=== PATIENT | male | born 1975 | race Caucasian/White ===

== ENCOUNTER 2017-06-22 20:01 | Inpatient (IN) | payer OTHER ==
[~2017-06-22] VITALS: Ht 177.8 cm; Wt 111.0 kg
[2017-06-22] MEDS ORDERED: SODIUM CHLORIDE 0.9% 1000ML 1,000 ML IV STA (20:06)
[2017-06-22] MEDS ORDERED: HYDROmorphone INJ 1 MG/ML SYR IV STA ×2 (20:06→21:02)
--- NOTE | 2017-06-22 20:12 | EMERGENCY ROOM VISIT NOTE ---
History Report prepared by Scribe: Ana Mcpherson Under the Supervision of: Dr. Dixon Yung M.D. First contact with patient: 20:02 Stated Complaint: FALL/ RT ANKLE PAIN W/DEFORMITY - W/C History of Present Illness The patient is a 41 year old male who presents to the Emergency Room with complaints of an episode of a fall that occurred just prior to arrival. The patient notes right ankle pain after the fall and believes it is broken. The patient was at work when he fell and "slipped on oil". He works at [employer]. The patient has a pin in both of his hips due to problems with growth spurt as child. No blood thinners. No previous injuries to ankle. Unable to bear weight. No medications prior to arrival. Worse with movement, better with rest. Did not strike head nor does he have headache nor neck pain. Source of History: patient Onset: just prior to arrival Position: ankle (right) Timing: other (episode) Review of Systems See HPI for pertinent positives & negatives. A total of 10 systems reviewed and were otherwise negative. Past Medical & Surgical Surgical Problems: (1) hip repair Family History no pertinent family history stated Social History Marital Status: single Occupation Status: employed Current/Historical Medications Scheduled Hydrocortisone (Cortef), 20 MG PO DAILY Levothyroxine Sodium (Levothyroxine Sodium), 1 TAB PO DAILY Testosterone Cypionate (Testosterone Cypionate), 200 MG IM WK Allergies Coded Allergies: NO KNOWN DRUG ALLERGIES (Verified Allergy, Unknown, none, 06/22/17) Physical Exam Vital Signs Date Time Temp Pulse Resp B/P (MAP) Pulse Ox O2 Delivery O2 Flow Rate FiO2 06/22/17 21:53 52 18 102/64 92 Nasal Cannula 4.0 06/22/17 21:14 100 Nasal Cannula 2.0 06/22/17 21:13 58 18 119/79 88 Room Air 06/22/17 20:05 36.9 66 18 124/67 100 Room Air Physical Exam GENERAL: Patient is well appearing and in no acute distress. HEENT: No acute trauma, normocephalic atraumatic, mucous membranes moist, no nasal congestion, no scleral icterus. NECK: No stridor, no adenopathy, no meningismus, trachea is midline. LUNGS: No dyspnea. Clear to auscultation and equal bilaterally. No wheeze, no rhonchi. HEART: Regular rate and rhythm. No murmurs, rubs, gallops appreciated. ABDOMEN: Soft, nontender, bowel sounds positive, no masses appreciated, no peritonitis. BACK: No midline tenderness, no CVA tenderness EXTREMITIES: Normal motion all extremities, no cyanosis. Mildly externally rotated right foot with tenderness on palpation and swelling. Mild tenderness on palpation of right fibula NEUROLOGIC: Alert and oriented, no acute motor or sensory deficits, no focal weakness, cranial nerves grossly intact. SKIN: No rash, no jaundice, no diaphoresis. Medical Decision & Procedures ER Provider Diagnostic Interpretation: Radiology results and stated below per my review and radiologist interpretation: ANKLE 2 VIEWS FINDINGS: There is a markedly displaced fracture through the distal shaft of the right fibula. Fracture is displaced 1.3 cm. There is disruption of the tibiotalar joint. In addition, there are displaced fractures of the medial malleolus and posterior malleolus of the distal right tibia. Soft tissue swelling is present. Talar dome appears intact. Positioning on this exam was difficult. IMPRESSION: Findings consistent with a markedly displaced trimalleolar fracture/tibiotalar joint dislocation of the right ankle. Electronically signed by: Sarkis Jenkins M.D. RIGHT TIBIA/FIBULA 2 VIEWS ROUTINE FINDINGS: A displaced trimalleolar fracture/dislocation of the right ankle is better depicted on the right ankle radiographs. There is no proximal right tibial or fibular fracture. Alignment of the right knee is anatomic. There is a possible 7 mm subchondral lucent focus within the lateral tibial plateau. There is no right knee joint effusion. IMPRESSION: 1. Displaced trimalleolar fracture/dislocation of the right ankle which is better depicted on the right ankle radiographs. 2. No proximal right tibial or fibular fracture. 3. Apparent 7 mm subchondral lucency focus within the lateral tibial plateau. This is nonspecific and may be artifactual but is not acute. Electronically signed by: Sarkis Jenkins M.D. RIGHT ANKLE 2 VIEWS CLINICAL HISTORY: Post reduction. . FINDINGS: Fine detail is diminished due to overlying cast. Alignment of the trimalleolar fracture/dislocation of the right ankle has improved since prior exam. Distal fibular fracture is displaced 1.2 cm. Persistent but improved medial ankle mortise widening is noted. IMPRESSION: Interval improvement in alignment of the right ankle trimalleolar fracture/dislocation since prior exam. Distal right fibular and tibial fractures remain displaced with persistent medial ankle mortise widening although moderate improvement since prior exam. Electronically signed by: Sarkis Jenkins M.D. Laboratory Results 06/22/17 20:20 Red Blood Count 3.47, Mean Corpuscular Volume 86.5, Mean Corpuscular Hemoglobin 28.8, Mean Corpuscular Hemoglobin Concent 33.3, Mean Platelet Volume 11.1, Neutrophils (%) (Auto) 48.7, Lymphocytes (%) (Auto) 36.0, Monocytes (%) (Auto) 5.8, Eosinophils (%) (Auto) 6.9, Basophils (%) (Auto) 2.4, Neutrophils # (Auto) 3.10, Lymphocytes # (Auto) 2.29, Monocytes # (Auto) 0.37, Eosinophils # (Auto) 0.44, Basophils # (Auto) 0.15 06/22/17 20:20 Test 06/22/17 20:20 06/22/17 21:51 White Blood Count 6.36 K/uL (4.8-10.8) Red Blood Count 3.47 M/uL (4.7-6.1) Hemoglobin 10.0 g/dL (14.0-18.0) Hematocrit 30.0 % (42-52) Mean Corpuscular Volume 86.5 fL (80-100) Mean Corpuscular Hemoglobin 28.8 pg (25-34) Mean Corpuscular Hemoglobin Concent 33.3 g/dl (32-36) Platelet Count 176 K/uL (130-400) Mean Platelet Volume 11.1 fL (7.4-10.4) Neutrophils (%) (Auto) 48.7 % Lymphocytes (%) (Auto) 36.0 % Monocytes (%) (Auto) 5.8 % Eosinophils (%) (Auto) 6.9 % Basophils (%) (Auto) 2.4 % Neutrophils # (Auto) 3.10 K/uL (1.4-6.5) Lymphocytes # (Auto) 2.29 K/uL (1.2-3.4) Monocytes # (Auto) 0.37 K/uL (0.11-0.59) Eosinophils # (Auto) 0.44 K/uL (0-0.5) Basophils # (Auto) 0.15 K/uL (0-0.2) RDW Standard Deviation 47.5 fL (36.4-46.3) RDW Coefficient of Variation 15.0 % (11.5-14.5) Immature Granulocyte % (Auto) 0.2 % Immature Granulocyte # (Auto) 0.01 K/uL (0.00-0.02) Prothrombin Time 12.3 SECONDS (9.0-12.0) Prothromb Time International Ratio 1.1 (0.9-1.1) Activated Partial Thromboplast Time 32.7 SECONDS (21.0-31.0) Partial Thromboplastin Ratio 1.3 Anion Gap 6.0 mmol/L (3-11) Est Creatinine Clear Calc Drug Dose 81.0 ml/min Estimated GFR () 66.1 Estimated GFR (Non- 57.0 BUN/Creatinine Ratio 9.5 (10-20) Calcium Level 8.9 mg/dl (8.5-10.1) Medications Administered Medications (Trade) Dose Ordered Sig/April Route Start Time Stop Time Status Last Admin Dose Admin Hydromorphone HCl (Dilaudid Inj) 1 mg NOW STAT IV 06/22/17 20:06 06/22/17 20:08 DC 06/22/17 20:21 1 MG Sodium Chloride 1,000 ml @ 999 mls/hr Q1H1M STAT IV 06/22/17 20:06 06/22/17 21:06 DC 06/22/17 20:20 999 MLS/HR Hydromorphone HCl (Dilaudid Inj) 1 mg NOW STAT IV 06/22/17 21:02 06/22/17 21:03 DC 06/22/17 21:09 1 MG ED Course 2002: The patient was evaluated in room C7. A complete history and physical exam was performed. 2005: Sodium Chloride 1000 ml @ 999 mls/hr, Dilaudid Inj 1 mg IV. 2101: Dilaudid Inj 1 mg IV. 2109: I reduced the patients ankle placed in it in Ortho Glass. 2129: I discussed the patient's case with Dr. Soto- [facility]. Dr. Soto suggested doing lab work and possible admissions due to the multiple endocrine medications the pt needs. Notes surgery likely tomorrow morning 2139: [facility] The patient will be evaluated for further treatment and disposition. 2144: Upon reevaluation, the patient is resting. Discussed results and treatment plan with the patient. He verbalized understanding and agreement with the treatment plan. The patient will be evaluated for further management. Medical Decision Differential: Fracture, Dislocation, Ligamentous Injury, Effusion, amongst other pathologies entertained. 41 yr old male arrives with complaints of right ankle injury s/p fall. Angulated though with excellent n/v thus felt imaging reasonable. Dilaudid for pain. Fx/dx trimal right ankle reduced at bedside though is severely unstable and unable to keep in excellent alignment. Placed in orthoglass, elevated, ice. Reviewed post reduction imaging with ortho who agrees that this is surgical case. Will plan AM surgery. Given history of pituitary resection in past and need to steroids, thyroid meds I discussed with Medical team who will be primary team and ortho will consult. Patient with good cap refill and neuro post reduction and repeat. Was given 2nd dose dilaudid post reduction while splinting and tolerated well other than some mild hypoxia. Pre-op labs/cxr ordered. Patient stable and comfortable with plan. Medication Reconcilliation Current Medication List: was personally reviewed by me Blood Pressure Screening Patient's blood pressure: Normal blood pressure Blood pressure disposition: Did not require urgent referral Consults Time Called: 2114 Consulting Physician: Dr. Soto- [facility] Returned Call: 2129 Discussed the patient's case. Additional Consults: Time Called: 2137 Consulted Physician: Dr. Jimenez Returned Call: 2139 Additional Comments: Discussed the patient's case. The patient will be evaluated for further treatment and disposition. Impression Primary Impression: Displaced trimalleolar fracture of right ankle Scribe Attestation The scribe's documentation has been prepared under my direction and personally reviewed by me in its entirety. I confirm that the note above accurately reflects all work, treatment, procedures, and medical decision making performed by me. Departure Information Dispostion Being Evaluated By Hospitalist Referrals No Doctor, Assigned (PCP) Problem Qualifiers Primary Impression: Displaced trimalleolar fracture of right ankle Encounter type: initial encounter Fracture type: closed Qualified Codes: S82.851A - Displaced trimalleolar fracture of right lower leg, initial encounter for closed fracture
[2017-06-22] MEDS ORDERED: HYDR20TA3 PO (20:55)
[2017-06-22] MEDS ORDERED: TEST1INJ2 IM (20:55)
[2017-06-22] MEDS ORDERED: LEVO100T7 PO (20:55)
--- NOTE | 2017-06-22 20:58 | DIAGNOSTIC IMAGING REPORT ---
ANKLE 2 VIEWS CLINICAL HISTORY: Right ankle pain and deformity following fall. COMPARISON: None FINDINGS: There is a markedly displaced fracture through the distal shaft of the right fibula. Fracture is displaced 1.3 cm. There is disruption of the tibiotalar joint. In addition, there are displaced fractures of the medial malleolus and posterior malleolus of the distal right tibia. Soft tissue swelling is present. Talar dome appears intact. Positioning on this exam was difficult. IMPRESSION: Findings consistent with a markedly displaced trimalleolar fracture/tibiotalar joint dislocation of the right ankle. Electronically signed by: Sarkis Jenkins M.D. 06/22/2017 8:57 PM Dictated Date/Time: 06/22/2017 8:55 PM
--- NOTE | 2017-06-22 21:01 | DIAGNOSTIC IMAGING REPORT ---
RIGHT TIBIA/FIBULA 2 VIEWS ROUTINE CLINICAL HISTORY: Fall. Right ankle injury. COMPARISON: None FINDINGS: A displaced trimalleolar fracture/dislocation of the right ankle is better depicted on the right ankle radiographs. There is no proximal right tibial or fibular fracture. Alignment of the right knee is anatomic. There is a possible 7 mm subchondral lucent focus within the lateral tibial plateau. There is no right knee joint effusion. IMPRESSION: 1. Displaced trimalleolar fracture/dislocation of the right ankle which is better depicted on the right ankle radiographs. 2. No proximal right tibial or fibular fracture. 3. Apparent 7 mm subchondral lucency focus within the lateral tibial plateau. This is nonspecific and may be artifactual but is not acute. Electronically signed by: Sarkis Jenkins M.D. 06/22/2017 9:00 PM Dictated Date/Time: 06/22/2017 8:57 PM
--- NOTE | 2017-06-22 21:43 | DIAGNOSTIC IMAGING REPORT ---
RIGHT ANKLE 2 VIEWS CLINICAL HISTORY: Post reduction. COMPARISON: Right ankle radiograph June 22, 2017 at 8:20 PM. FINDINGS: Fine detail is diminished due to overlying cast. Alignment of the trimalleolar fracture/dislocation of the right ankle has improved since prior exam. Distal fibular fracture is displaced 1.2 cm. Persistent but improved medial ankle mortise widening is noted. IMPRESSION: Interval improvement in alignment of the right ankle trimalleolar fracture/dislocation since prior exam. Distal right fibular and tibial fractures remain displaced with persistent medial ankle mortise widening although moderate improvement since prior exam. Electronically signed by: Sarkis Jenkins M.D. 06/22/2017 9:42 PM Dictated Date/Time: 06/22/2017 9:38 PM
[2017-06-22 21:44] LABS: BASO % 2.4 %; BASO ABS # 0.15 K/uL (0-0.2); COMPLETE YES; EOS % 6.9 %; IG% 0.2 %; LYMPH ABS # 2.29 K/uL (1.2-3.4); MEAN CELL VOLUME 86.5 fL (80-100); MEAN CORPUSCULAR HEMOGLOBIN 28.8 pg (25-34); MEAN CORPUSCULAR HGB CONC 33.3 g/dl (32-36); MEAN PLATELET VOLUME 11.1 fL (7.4-10.4); MONO % 5.8 %; NEUT % 48.7 %; PLATELET COUNT 176 K/uL (130-400); RED BLOOD COUNT 3.47 M/uL (4.7-6.1); WHITE BLOOD COUNT 6.36 K/uL (4.8-10.8)
[2017-06-22 21:51] LABS: BUN/CREATININE RATIO 9.5 (10-20); CALCIUM 8.9 mg/dl (8.5-10.1); CREATININE 1.5 mg/dl (0.60-1.40); POTASSIUM 3.4 mmol/L (3.5-5.1)
[2017-06-22 21:53] LABS: INR 1.1 (0.9-1.1); PARTIAL THROMBOPLASTIN RATIO 1.3; PROTHROMBIN TIME (PATIENT) 12.3 SECONDS (9.0-12.0)
[2017-06-22] MEDS ORDERED: IBUPROFEN 600 MG TAB PO PRN (22:00)
--- NOTE | 2017-06-22 22:06 | DIAGNOSTIC IMAGING REPORT ---
CHEST ONE VIEW PORTABLE CLINICAL HISTORY: Preoperative evaluation. COMPARISON STUDY: No previous studies for comparison. FINDINGS: Lung volumes are normal. Lungs are clear. No pneumothorax or pleural effusion is present. Pulmonary vascularity is normal. Cardiomediastinal silhouette is unremarkable. Patient is mildly rotated. IMPRESSION: No acute cardiopulmonary findings. Electronically signed by: Sarkis Jenkins M.D. 06/22/2017 10:04 PM Dictated Date/Time: 06/22/2017 10:04 PM
--- NOTE | 2017-06-22 22:22 | History and Physical ---
History & Physical Date & Time of Service: Jun 22, 2017 at 22:01 Chief Complaint: Fall/ Rt Ankle Pain W/Deformity - W/C Primary Care Physician: Phillip Freeman M.D. 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 He was proved correct as an XR elucidated a markedly displaced trimalleolar fracture. This was somewhat reduced by the ER attending. The case was discussed with the orthopedic service as they felt he would require surgery. The pt is admitted for surgical evaluation by the medical service due to underlying comorbidities. He denies any symptoms preceding his fall and had been in his normal state of health prior. Past Medical/Surgical History Surgical Problems: (1) hip repair Status: Resolved Social History Smoking Status: Never Smoker Marital Status: single Occupational Status: employed Multi-Drug Resistant Organisms History of MDRO: No Allergies Coded Allergies: NO KNOWN DRUG ALLERGIES (Verified Allergy, Unknown, none, 06/22/17) Home Medications Scheduled Hydrocortisone (Cortef), 20 MG PO DAILY Levothyroxine Sodium (Levothyroxine Sodium), 1 TAB PO DAILY Testosterone Cypionate (Testosterone Cypionate), 200 MG IM WK Review of Systems Constitutional: No fever, No chills, No sweats Eyes: No worsening of vision ENT: No hearing loss, No unusual epistaxis, No nasal symptoms Respiratory: No cough, No sputum, No wheezing Cardiovascular: No chest pain, No orthopnea, No PND Abdomen: No pain, No nausea, No vomiting Musculoskeletal: + problem reported (Distal RLE pain 06/13) Genitourinary - Male: No hematuria, No dysuria, No urinary frequency, No urinary urgency Neurologic: No memory loss, No paralysis, No weakness Psychiatric: No depression symptoms Endocrine: No fatigue Hematologic / Lymphatic: No abnormal bleeding/bruising Integumentary: No rash Allergic / Immunologic: No environmental allergies Physical Exam Vital Signs Date Time Temp Pulse Resp B/P (MAP) Pulse Ox O2 Delivery O2 Flow Rate FiO2 06/22/17 21:53 52 18 102/64 92 Nasal Cannula 4.0 06/22/17 21:14 100 Nasal Cannula 2.0 06/22/17 21:13 58 18 119/79 88 Room Air 06/22/17 20:05 36.9 66 18 124/67 100 Room Air General Appearance: WD/WN, no apparent distress Head: normocephalic Eyes: normal inspection ENT: normal ENT inspection, pharynx normal Neck: supple, no JVD Respiratory/Chest: chest non-tender, lungs clear, normal breath sounds, no respiratory distress, no accessory muscle use Cardiovascular: regular rate, rhythm Abdomen/GI: normal bowel sounds, non tender, soft Back: normal inspection, no CVA tenderness, no muscle spasm, normal range of motion Extremities/Musculoskelatal: + pertinent finding (RLE is splinted) 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, oriented x 3 Skin: normal color Diagnostics Laboratory Results Results Past 24 Hours Test 06/22/17 20:20 06/22/17 21:51 Range/Units White Blood Count 6.36 4.8-10.8 K/uL Red Blood Count 3.47 4.7-6.1 M/uL Hemoglobin 10.0 14.0-18.0 g/dL Hematocrit 30.0 42-52 % Mean Corpuscular Volume 86.5 80-100 fL Mean Corpuscular Hemoglobin 28.8 25-34 pg Mean Corpuscular Hemoglobin Concent 33.3 32-36 g/dl Platelet Count 176 130-400 K/uL Mean Platelet Volume 11.1 7.4-10.4 fL Neutrophils (%) (Auto) 48.7 % Lymphocytes (%) (Auto) 36.0 % Monocytes (%) (Auto) 5.8 % Eosinophils (%) (Auto) 6.9 % Basophils (%) (Auto) 2.4 % Neutrophils # (Auto) 3.10 1.4-6.5 K/uL Lymphocytes # (Auto) 2.29 1.2-3.4 K/uL Monocytes # (Auto) 0.37 0.11-0.59 K/uL Eosinophils # (Auto) 0.44 0-0.5 K/uL Basophils # (Auto) 0.15 0-0.2 K/uL RDW Standard Deviation 47.5 36.4-46.3 fL RDW Coefficient of Variation 15.0 11.5-14.5 % Immature Granulocyte % (Auto) 0.2 % Immature Granulocyte # (Auto) 0.01 0.00-0.02 K/uL Prothrombin Time 12.3 9.0-12.0 SECONDS Prothromb Time International Ratio 1.1 0.9-1.1 Activated Partial Thromboplast Time 32.7 21.0-31.0 SECONDS Partial Thromboplastin Ratio 1.3 Sodium Level 135 136-145 mmol/L Potassium Level 3.4 3.5-5.1 mmol/L Chloride Level 101 98-107 mmol/L Carbon Dioxide Level 28 21-32 mmol/L Anion Gap 6.0 3-11 mmol/L Blood Urea Nitrogen 14 7-18 mg/dl Creatinine 1.50 0.60-1.40 mg/dl Est Creatinine Clear Calc Drug Dose 81.0 ml/min Estimated GFR () 66.1 Estimated GFR (Non- 57.0 BUN/Creatinine Ratio 9.5 10-20 Random Glucose 76 70-99 mg/dl Calcium Level 8.9 8.5-10.1 mg/dl Diagnostic Radiology XR tib/fib Findings consistent with a markedly displaced trimalleolar fracture/tibiotalar joint dislocation of the right ankle. 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 He was proved correct when an XR elucidated a markedly displaced trimalleolar fracture. This was somewhat reduced by the ER attending. The case was discussed with the orthopedic service as they felt he would require surgery. 1) Trimalleolar fracture - pt to be evaluated for surgery AM 2) Panhypopituitarism - we will continue his scheduled medications. The day of surgery he should be started on stress-dose steroids - Hydrocortisone 100mg TID. We will aggressively hydrate the pt overnight. 3) Creatinine is elevated at 1.5 - no baseline for comparison - IVF overnight - trend AM - may need referral to nephrology as outpt if this is a baseline creatinine. 4) Pre-op - this pt has no significant cardiovascular risk factors - RCRI 0.4% - is at risk of ERLIN due to habitus and may need Bipap for a period following general anesthesia. Full code - Heparin held pending ortho eval Total time for this admit including reviiew of labs, meds, records, imaging - discussion with pt and ER attending - 36 min Level of Care Med/Surg Resuscitation Status FULL RESUSCITATION VTE Prophylaxis Given or contraindicated: Treatment not indicated
[2017-06-22] MEDS ORDERED: ONDANSETRON INJ 2 MG/ML 2 ML VIAL IV PRN (23:30)
[2017-06-22] MEDS ORDERED: ZOLPIDEM TARTRATE 5 MG TAB PO PRN (23:30)
[2017-06-22] MEDS ORDERED: ALUMINUM/MAGNESIUM/SIMETH (MAALOX MAX) 30 ML UDC PO PRN (23:30)
[2017-06-22] MEDS ORDERED: ACETAMINOPHEN 325 MG TAB PO PRN (23:30)
[2017-06-22] MEDS ORDERED: POLYETHYLENE (MIRALAX) 17 GM PACK PO PRN (23:30)
[2017-06-22] MEDS ORDERED: MAGNESIUM HYDROXIDE SUSP 30 ML UDC PO PRN (23:30)
[2017-06-23] VITALS (9 sets, daily range): BP systolic 95–137; BP diastolic 63–84; PULSE 49–63; TEMP 34.8–36.9; O2SAT 90–100; Ht 177.8 cm; Wt 111.0 kg
[2017-06-23] MEDS: D5NSS + 20MEQ KCL 1,000 ML IV SCH ×2 (00:55→07:27)
[2017-06-23] MEDS: OXYCODONE/ACETAMINOPHEN 7.5-325 TAB PO PRN ×2 (03:36→17:39)
[2017-06-23 05:47] LABS: HEMATOCRIT 31.2 % (42-52); MEAN CELL VOLUME 87.2 fL (80-100); MEAN CORPUSCULAR HEMOGLOBIN 29.1 pg (25-34); MEAN CORPUSCULAR HGB CONC 33.3 g/dl (32-36); MEAN PLATELET VOLUME 10.7 fL (7.4-10.4); PLATELET COUNT 138 K/uL (130-400); RED BLOOD COUNT 3.58 M/uL (4.7-6.1); WHITE BLOOD COUNT 5.73 K/uL (4.8-10.8)
[2017-06-23] MEDS: LEVOTHYROXINE 100 MCG TAB PO SCH (06:01)
[2017-06-23 06:10] LABS: INR 1.2 (0.9-1.1); PROTHROMBIN TIME (PATIENT) 12.5 SECONDS (9.0-12.0)
[2017-06-23 06:15] LABS: BUN/CREATININE RATIO 9.5 (10-20); CALCIUM 8.1 mg/dl (8.5-10.1); CREATININE 1.3 mg/dl (0.60-1.40); MAGNESIUM 2.3 mg/dl (1.8-2.4); POTASSIUM 3.4 mmol/L (3.5-5.1)
[2017-06-23] MEDS: HYDROCORTISONE 10 MG TAB PO SCH (09:13)
--- NOTE | 2017-06-23 11:09 | History & Physical Bridge Note ---
H&P Re-Evaluation Bridge Note: I have examined the patient, reviewed the History & Physical and in the interval since the performance of the History & Physical I have noted the following changes of clinical significance: No changes noted
[2017-06-23] MEDS ORDERED: BUPIVACAINE/EPINEPHRINE 0.25% 1:200,000 30 ML VIAL ONE (11:51)
[2017-06-23] MEDS ORDERED: LIDOCAINE HCL 2% 2 ML VIAL (20MG/ML) ONE ×2 (11:52→12:33)
[2017-06-23] MEDS ORDERED: ONDANSETRON INJ 2 MG/ML 2 ML VIAL IV PRN ×2 (12:00→16:30)
[2017-06-23] MEDS ORDERED: FENTANYL CITRATE INJ 50 MCG/1 ML 2 ML VIAL IV PRN (12:00)
[2017-06-23] MEDS ORDERED: EpHEDrine SULFATE INJ 50 MG/ML AMP IV PRN (12:00)
[2017-06-23] MEDS ORDERED: HYDROmorphone INJ 1 MG/ML SYR IV PRN (12:00)
[2017-06-23] MEDS ORDERED: MEPERIDINE HCL 25 MG/ML CARP IV PRN (12:00)
[2017-06-23] MEDS ORDERED: LABETALOL HCL IV 5 MG/ML 20ML IV PRN (12:00)
[2017-06-23] MEDS ORDERED: ATROPINE SULFATE 0.1 MG/ML 5ML SYR IV PRN (12:00)
--- NOTE | 2017-06-23 12:17 | ORTHOPEDIC CONSULTATION ---
DATE OF CONSULTATION: 06/23/2017 HISTORY OF PRESENT ILLNESS: This is a 41-year-old gentleman who is seen at the request of Dr. Jimenez for a right ankle displaced trimalleolar ankle fracture. The patient was at work at [employer] and slipped on some oils on the floor, landed forcefully on his right lower extremity, felt a painful pop and noted obvious deformity. He was unable to ambulate and he was transported to [facility] by EMS. After evaluation by the Emergency Department physician and radiographs, noted to have a displaced trimalleolar ankle fracture. The ER physician then improved the reduction with some sedation; however, still had displacement of the fracture fragments, requiring hospital admission and scheduled for operative fixation. The patient denies any head or neck trauma. No loss of consciousness. PAST MEDICAL HISTORY: 1. Pituitary tumor. 2. Panhypopituitarism. PAST SURGICAL HISTORY: 1. Pituitary resection. 2. Hip repair. ALLERGIES: No known drug allergies. MEDICATIONS: Hydrocortisone, Cortef 20 mg p.o. daily, levothyroxine 1 tab p.o. daily, testosterone cypionate 200 mg IM q. week. SOCIAL HISTORY: He denies smoking. He does use smokeless tobacco. Denies significant alcohol and denies drug use. He is single. No children. He is employed as a cook at [employer]. PHYSICAL EXAMINATION: GENERAL: This is a 41-year-old male whose family members present at bedside including his mother. He is well nourished, well hydrated, in no acute distress. He has moderate obesity. EXTREMITIES: Examination of the right lower extremity demonstrates a well-padded splint. Toes are pink and warm. Cap refill is brisk, less than 2 seconds. He has mild discomfort with palpation of the ankle. Ankle alignment appears within normal limits. Radiographs both pre and post-reduction demonstrate a displaced trimalleolar ankle fracture with improved reduction after post-reduction, however, still displaced fracture fragments with displacement of the ankle mortise. IMPRESSION: Right closed displaced trimalleolar ankle fracture. RECOMMENDATIONS: Maintain n.p.o. Consent signed and on the chart. Preoperative antibiotics, weight based formula, to OR for ORIF of trimalleolar ankle fracture. All potential questions, risks, benefits and rehabilitation were discussed with patient and his family. They all agreed to the procedure as indicated. He will proceed to the OR when time available. Thank you for the opportunity to consult in the care of this patient. SHY
[2017-06-23] MEDS ORDERED: MIDAZOLAM HCL 1 MG/ML 2ML VIAL ONE ×2 (12:33)
[2017-06-23] MEDS ORDERED: FENTANYL CITRATE INJ 50 MCG/1 ML 2 ML VIAL ONE (12:33)
[2017-06-23] MEDS ORDERED: ONDANSETRON INJ 2 MG/ML 2 ML VIAL ONE (12:33)
[2017-06-23] MEDS ORDERED: DEXAMETHASONE SOD INJ 4 MG/ML VIAL ONE (12:33)
[2017-06-23] MEDS ORDERED: PROPOFOL IV EMULSION 10 MG/ML 20 ML VIAL IV ONE (12:33)
[2017-06-23] MEDS ORDERED: NEOSTIGMINE METHYLSULFATE 5 MG/5 ML SYR ONE (14:41)
[2017-06-23] MEDS ORDERED: GLYCOPYRROLATE INJ 0.2 MG/ML VIAL ONE (14:41)
--- NOTE | 2017-06-23 15:00 | Progress Note ---
Subjective Date of Service: Jun 23, 2017. Subjective Pt evaluation today including: conversation w/ patient, physical exam, chart review, lab review, review of studies, review of inpatient medication list Problem List Medical Problems: (1) Displaced trimalleolar fracture of right ankle Status: Acute (2) Trimalleolar fracture of ankle, closed Status: Acute Review of Systems Constitutional: No fever, No chills Respiratory: No cough, No sputum, No wheezing, No shortness of breath, No dyspnea on exertion Cardiac: No chest pain, No orthopnea, No PND, No edema Abdomen: No pain, No nausea, No vomiting, No diarrhea Musculoskeletal: + joint pain, No muscle pain, No swelling Male : No dysuria, No urinary frequency, No incontinence, No slowing stream Neurologic: No memory loss, No paralysis, No weakness, No numbness/tingling Psychiatric: No depression symptoms, No anhedonism, No anxiety, No insomnia Objective Vital Signs Date Time Temp Pulse Resp B/P (MAP) Pulse Ox O2 Delivery O2 Flow Rate FiO2 06/23/17 07:31 36.6 55 16 104/71 (82) 90 Room Air 06/23/17 07:20 Room Air 06/23/17 02:01 36.4 52 18 121/78 100 Room Air 06/23/17 00:30 Room Air 06/22/17 23:47 47 18 107/78 100 06/22/17 22:43 51 18 110/68 94 Nasal Cannula 4.0 06/22/17 22:20 53 06/22/17 21:53 52 18 102/64 92 Nasal Cannula 4.0 06/22/17 21:14 100 Nasal Cannula 2.0 06/22/17 21:13 58 18 119/79 88 Room Air 06/22/17 20:05 36.9 66 18 124/67 100 Room Air Physical Exam General Appearance: WD/WN, + mild distress Eyes: normal inspection, PERRL, EOMI, sclerae normal Neck: supple, no adenopathy, thyroid normal, no JVD Respiratory/Chest: chest non-tender, lungs clear, normal breath sounds, no respiratory distress Cardiovascular: regular rate, rhythm, no edema, no gallop, no JVD Abdomen: normal bowel sounds, non tender, soft, no organomegaly Neurologic/Psychiatric: alert, normal mood/affect, oriented x 3 Laboratory Results Last 24 Hours Test 06/22/17 20:20 06/22/17 21:51 06/23/17 05:21 White Blood Count 6.36 K/uL 5.73 K/uL Red Blood Count 3.47 M/uL 3.58 M/uL Hemoglobin 10.0 g/dL 10.4 g/dL Hematocrit 30.0 % 31.2 % Mean Corpuscular Volume 86.5 fL 87.2 fL Mean Corpuscular Hemoglobin 28.8 pg 29.1 pg Mean Corpuscular Hemoglobin Concent 33.3 g/dl 33.3 g/dl Platelet Count 176 K/uL 138 K/uL Mean Platelet Volume 11.1 fL 10.7 fL Neutrophils (%) (Auto) 48.7 % Lymphocytes (%) (Auto) 36.0 % Monocytes (%) (Auto) 5.8 % Eosinophils (%) (Auto) 6.9 % Basophils (%) (Auto) 2.4 % Neutrophils # (Auto) 3.10 K/uL Lymphocytes # (Auto) 2.29 K/uL Monocytes # (Auto) 0.37 K/uL Eosinophils # (Auto) 0.44 K/uL Basophils # (Auto) 0.15 K/uL RDW Standard Deviation 47.5 fL 48.4 fL RDW Coefficient of Variation 15.0 % 15.1 % Immature Granulocyte % (Auto) 0.2 % Immature Granulocyte # (Auto) 0.01 K/uL Prothrombin Time 12.3 SECONDS 12.5 SECONDS Prothromb Time International Ratio 1.1 1.2 Activated Partial Thromboplast Time 32.7 SECONDS Partial Thromboplastin Ratio 1.3 Sodium Level 135 mmol/L 139 mmol/L Potassium Level 3.4 mmol/L 3.4 mmol/L Chloride Level 101 mmol/L 106 mmol/L Carbon Dioxide Level 28 mmol/L 27 mmol/L Anion Gap 6.0 mmol/L 6.0 mmol/L Blood Urea Nitrogen 14 mg/dl 12 mg/dl Creatinine 1.50 mg/dl 1.30 mg/dl Est Creatinine Clear Calc Drug Dose 81.0 ml/min 93.3 ml/min Estimated GFR () 66.1 78.6 Estimated GFR (Non- 57.0 67.8 BUN/Creatinine Ratio 9.5 9.5 Random Glucose 76 mg/dl 116 mg/dl Calcium Level 8.9 mg/dl 8.1 mg/dl Thyroid Stimulating Hormone (TSH) 0.230 uIu/ml Magnesium Level 2.3 mg/dl Assessment and Plan 41 y/o M 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 He was proved correct when an XR elucidated a markedly displaced trimalleolar fracture. This was somewhat reduced by the ER attending. The case was discussed with the orthopedic service as they felt he would require surgery. 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 The day of surgery he should be started on stress-dose steroids - Hydrocortisone 100mg TID. 3) JAYDEN - Cr improved from 1.5 to 1.3 - no baseline for comparison - IVF 4) Pre-op - this pt has no significant cardiovascular risk factors - RCRI 0.4% - is at risk of ERLIN due to habitus and may need Bipap for a period following general anesthesia. Full code - Heparin held pending ortho eval
[2017-06-23] MEDS ORDERED: BUPIVACAINE 0.5 % 5 MG/1 ML MPF 30ML VIAL ONE (15:59)
--- NOTE | 2017-06-23 16:04 | DIAGNOSTIC IMAGING REPORT ---
INTRAOPERATIVE RADIOGRAPHS CLINICAL HISTORY: Open reduction and internal fixation of the right ankle. Fluoroscopy time: 73 seconds. FINDINGS: 2 spot fluoroscopic views of the right ankle are correlated with right ankle radiographs dated 06/22/2017. There has been buttress plate fixation of a distal fibular fracture. Numerous cortical lag screws transfix the buttress plate, one of which extends through the distal tibia. There are 2 cortical lag screws within the medial malleolus of the tibia, with additional cortical lag screws seen in the tibial plafond and in the distal fibula. Overlying soft tissue edema is noted. IMPRESSION: Intraoperative images from open reduction and internal fixation of the distal right tibia and fibula as above. Electronically signed by: Jeffrey Mccauley M.D. 06/23/2017 4:02 PM Dictated Date/Time: 06/23/2017 4:01 PM
[2017-06-23] MEDS ORDERED: BUPIVACAINE 0.5 % 5 MG/1 ML MPF 30ML VIAL INJ ONE (16:05)
--- NOTE | 2017-06-23 16:13 | [facility] Post Operative Brief Note ---
Immediate Operative Summary Operative Date Jun 23, 2017. Pre-Operative Diagnosis Right closed displaced trimalleolar ankle fracture; Syndesmotic disruption Post-Operative Diagnosis Right closed displaced trimalleolar ankle fracture; Syndesmotic disruption Procedure(s) Performed 1. Open Reduction Internal Fixation Right trimalleolar ankle fracture 2. ORIF Syndesmotic Disruption Surgeon Dr. Lisa Soto Desktop Support Consultant Surgeon(s) Yvonne Jaocbsen PA-C Estimated Blood Loss 20 cc Findings See Dict Specimens none per surgeon Drains None Anesthesia GLMA w/ popliteal and local Complication(s) None Disposition Recovery Room / PACU
[2017-06-23] MEDS ORDERED: OXYCODONE/ACETAMINOPHEN 5-325 TAB PO PRN (16:30)
[2017-06-23] MEDS ORDERED: ACETAMINOPHEN 325 MG TAB PO PRN (16:30)
[2017-06-23] MEDS ORDERED: OXYC-57 PO (16:37)
--- NOTE | 2017-06-23 16:41 | Consultant Recommendations ---
Dealer Support Technician Recommendations Date of Service Jun 23, 2017. Dealer Support Technician Recommendations ACTIVITY RECOMMENDATIONS: * You are to be NON-WEIGHTBEARING on your operative leg. * May obtain a rolling walker for ambulation. SPECIAL CARE INSTRUCTIONS: * Some drainage onto the dressing is normal and is no cause for alarm. * Some swelling is natural especially after walking. When resting, keep your foot elevated above the level of your heart. * Call the doctor's office at if you notice increased drainage, fever over 101 degrees F. or severe constant pain. * You may take pain medication as directed. BANDAGE: * Leave bandage/cast in place unless otherwise directed. * Keep bandage/cast dry at all times. FOLLOW UP VISIT: If appointment is not already scheduled: Please call [facility] to make a follow-up appointment 10-14 days after your surgery with Dr. Soto or his PA at .
--- NOTE | 2017-06-23 17:20 | Anesthesiology Progress Note ---
Anesthesia Post Op Note Date & Time Jun 23, 2017 at 17:20 Vital Signs Pain Intensity: 0.0 Vital Signs Past 12 Hours Date Time Temp Pulse Resp B/P (MAP) Pulse Ox O2 Delivery O2 Flow Rate FiO2 06/23/17 16:55 45 10 119/69 98 Room Air 06/23/17 16:45 47 10 116/62 100 Mask 10 06/23/17 16:30 49 10 110/67 100 Mask 10 06/23/17 16:26 36.4 43 10 114/65 100 Mask 10 06/23/17 07:31 36.6 55 16 104/71 (82) 90 Room Air 06/23/17 07:20 Room Air Notes Mental Status: alert / awake / arousable, participated in evaluation Pt Amnestic to Procedure: Yes Nausea / Vomiting: adequately controlled Pain: adequately controlled Airway Patency, RR, SpO2: stable & adequate BP & HR: stable & adequate Hydration State: stable & adequate Anesthetic Complications: no major complications apparent
[2017-06-23] MEDS: OXYCODONE/ACETAMINOPHEN 5-325 TAB PO PRN (21:52)
--- NOTE | 2017-06-23 22:56 | OPERATIVE REPORT ---
DATE OF OPERATION: 06/23/2017 PREOPERATIVE DIAGNOSES: 1. Right closed displaced trimalleolar ankle fracture. 2. Syndesmotic disruption. POSTOPERATIVE DIAGNOSES: 1. Right closed displaced trimalleolar ankle fracture. 2. Syndesmotic disruption. PROCEDURE: 1. Open reduction internal fixation right trimalleolar ankle fracture. 2. Syndesmotic repair with 4.5 mm screw. SURGEON: Dr. Soto. CHARGE AIDE: Bubba Jacobsen PA-C, who was present for patient positioning, sterile prep and drape, management of retractors and instruments. He was present through the critical portions of the case including wound closure, application of sterile dressing and transport of the patient to recovery. ANESTHESIA: General LMA with popliteal block and local. SPECIMENS: None. DRAINS: None. COMPLICATIONS: None. BLOOD LOSS: 20 mL PERTINENT HISTORY: This is a 41-year-old employee of [employer]. He was at work and he slipped on some oil or grease and twisted his right ankle severely. It was displaced significantly, unable to ambulate, and he has been transported to [facility] via EMS. Radiographs revealed a displaced trimalleolar ankle fracture with syndesmotic disruption. The patient had an initial partial reduction and splinting in the ER, and he was admitted to the hospital and scheduled for surgery as indicated. All potential risks, benefits, complications, alternatives, rehab, potential for incomplete relief of symptoms, need for further surgery, DVT, PE, , persistent pain, swelling, scarring, weakness, neurovascular injury, wound complications, nonunion, malunion, hardware failure and loss of function were discussed with the patient. The patient decided to proceed with the procedure as indicated. PROCEDURE IN DETAIL: The patient received a popliteal block in the preop holding area. He was then taken to the operative suite and placed supine on the operating room table. After review of the consent and identification of proper operative site, the patient was anesthetized, LMA was placed. Next, the splint was removed and the ankle was held in reduction and radiographs were obtained to determine the sizing of the fragments and position for fixation. The patient was then transferred to the operative bed and a tourniquet was applied high on the right thigh over cast padding. Right lower extremity was then sterilely prepped and draped in usual fashion and the right hip was placed in a soft bump. Next, the right lower extremity was then elevated and exsanguinated with an Esmarch bandage and the tourniquet was inflated to 350 mmHg. Next, a 15 blade scalpel was used to make an incision along the lateral aspect of the lateral malleolus. Incision was then deepened through the subcutaneous tissue. Meticulous hemostasis was achieved with electrocautery. The fascia was incised in line with skin incision with a 15 blade scalpel and sensory cutaneous nerve was then identified, freed with a small Metzenbaum scissors and retracted and protected with a Weitlaner. Next, the fracture was identified and the fracture ends were then carefully debrided with a 15 blade scalpel and a forceps. This was then followed by removal of clotted blood from the interspace of the fracture with irrigation. The fracture ends were then carefully reapproximated using gentle traction and bone reduction forceps. With the fracture held in reduced position, radiographs were obtained to confirm reduction. This was then followed by contouring of an 8-hole 1/3 tubular locking Synthes plate which was then applied to the lateral aspect of the fibula which was then secured firmly with a single nonlocking screw under live fluoroscopic assistance. Next, the plate was firmly affixed to the fibula with multiple locking screws and then a single 3.5 mm fully threaded lag screw was placed from anterior to posterior to secure the fracture fragment. Next, the wound was irrigated with sterile normal saline and packed with a sterile lap sponge. Next, attention was then directed toward the medial malleolus, at which point a 15 blade scalpel was used to make a curvilinear incision centered over the medial malleolus. Incision was deepened through the subcutaneous tissue. Meticulous hemostasis was achieved with electrocautery. The branches of the saphenous vein were then retracted and protected with the Weitlaner, this then followed by identification of the fracture site which was then carefully debrided with a 15 blade scalpel and forceps. Periosteum had flipped inside the fracture and into the joint. This was then sharply excised with 15 blade scalpel. Wound was copiously irrigated with sterile normal saline. Dental pick was then used to remove any debris from the fracture ends and then the fracture was then reduced and approximated with a bone forceps. Next, 1.25 mm guide pins x2 were placed in the medial malleolus to secure it under live fluoroscopic assistance. This was then followed by application of two 4.0 cannulated screws which were countersunk and used to reapproximate the medial malleolar fragment in anatomic position. Guide pins were removed. Next, attention was then directed toward the anterior aspect of the tibia. Under fluoroscopic assistance, the anterior aspect and cortex of the distal aspect of the tibia was localized. Small stab incisions x2 were made with a 15 blade scalpel and then two 1.25 mm guide pins were placed in the anterior aspect of the tibia with the foot held in approximately 5 degrees of dorsiflexion to reapproximate the posterior malleolar fragment which comprised approximately 15% of the contour of the distal tibial plafond on the lateral x-ray. Next, the guide pins were driven across the fracture into the posterior malleolar fragment and the partially threaded 4.0 cannulated screws were placed under live fluoroscopic assistance to achieve anatomic reduction of the posterior malleolar fragment. Screws were tightened and the guide pins were removed. Next, the nonlocking screw initially applied to the lateral fibular plate was then removed. The foot was held in neutral dorsiflexion and then a single 4.5 mm fully threaded 58 mm screw was then placed through all 4 cortices of the fibula and the tibia under live fluoroscopic assistance to stabilize the syndesmosis. Foot was held in neutral dorsiflexion throughout the application of the 4.5 mm screw. Next, final radiographs were obtained, noting anatomic reduction and fixation of the trimalleolar ankle fracture with the ankle mortise symmetric on the AP view and on the mortise view. All wounds were then copiously irrigated with sterile normal saline, followed by closure of the periosteum and deep soft tissue on the lateral aspect with 2-0 Vicryl sutures. The dermis was then closed using buried interrupted 3-0 and 2-0 Vicryl sutures in medial, lateral and anterior incisions, which was then followed by closure of all skin incisions with 4-0 nylon sutures. Next, 0.5% Marcaine approximately 20 mL was injected along the medial incision and deep into the periosteum of the medial malleolus to ensure adequate pain relief postop. Next, a sterile compressive dressing and bulky Bubba Cueto plaster splint was applied, overwrapped with an Alan wrap with the foot held in neutral dorsiflexion. Next, tourniquet was released. The patient was awakened and taken to recovery in stable condition. I attest to the content of the Intraoperative Record and any orders documented therein. Any exception s are noted below.
[2017-06-24 04:18] VITALS: BP 95/63; PULSE 68; TEMP 36.8; O2SAT 95
[2017-06-24] MEDS: LEVOTHYROXINE 100 MCG TAB PO SCH (05:42)
[2017-06-24] MEDS: OXYCODONE/ACETAMINOPHEN 5-325 TAB PO PRN ×2 (05:42→14:14)
[2017-06-24 07:33] VITALS: BP 95/61; PULSE 68; TEMP 36.8; O2SAT 95
--- NOTE | 2017-06-24 07:40 | Orthopedic Progress Note ---
Orthopedic Progress Note Date of Service Jun 24, 2017. Subjective Post OP Day: 1 Reports: feeling well, Denies: chest pain, SOB, nausea / vomiting, light headedness, calf pain Objective calves soft nontender, N/V intact, splint C/D/I, capillary refill less than 2 sec., A&O x3, toes mobile Date Time Temp Pulse Resp B/P (MAP) Pulse Ox O2 Delivery O2 Flow Rate FiO2 06/24/17 07:33 36.8 68 16 95/61 (72) 95 Room Air 06/24/17 04:18 36.8 68 16 95/63 (74) 95 Room Air 06/23/17 23:25 36.9 60 14 95/63 (74) 96 Room Air 06/23/17 23:15 Room Air 06/23/17 20:14 36.2 55 16 104/72 (83) 90 Room Air 06/23/17 19:15 34.8 49 16 132/75 (94) 92 Room Air 06/23/17 18:15 36.6 63 18 116/72 (87) 99 Room Air 06/23/17 17:45 53 16 137/83 (101) 97 Room Air 06/23/17 17:33 Room Air 06/23/17 17:33 98 Room Air 06/23/17 17:15 36.4 53 15 136/84 (101) 98 Room Air 06/23/17 16:55 45 10 119/69 98 Room Air 06/23/17 16:45 47 10 116/62 100 Mask 10 06/23/17 16:30 49 10 110/67 100 Mask 10 06/23/17 16:26 36.4 43 10 114/65 100 Mask 10 Assessment & Plan Assessment: POD#1 SP ORIF RIGHT ANKLE Plan: PAIN MGT- PERCOCET MEDICAL MANAGEMENT DC PLANNING- HOME TODAY, NO PT NEEDED. ORTHOPEDICALLY STABLE- FOLLOW UP IN 10-[address] HEALY. WILL SIGN OFF. Inhouse Planning Pain Management: Percocet Discharge Planning Discharge Planning: home (ORTHOPEDICALLY STABLE FOR DC TO HOME TODAY. PATIENT GOING TO USE A WALKER VS KNEE SCOOTER FOR AMBULATION. )
--- NOTE | 2017-06-24 07:42 | Discharge Summary ---
Discharge Summary Date of Service Jun 24, 2017. Discharge Summary Admission Date: Jun 22, 2017 at 23:20 Discharge Date: Jun 24, 2017 Discharge Disposition: Home Principal Diagnosis: right ankle fracture Medication Reconciliation New Medications: Oxycodone/Acetaminophen 5MG/325MG (Percocet 5MG/325MG) Tab 1-2 TABLETS PO Q4H PRN for Pain, #60 TAB Continued Medications: Hydrocortisone (Cortef) 20 Mg Tab 20 MG PO DAILY, TAB Levothyroxine Sodium (Levothyroxine Sodium) 100 Mcg Tab 1 TAB PO DAILY for 90 Days, #90 TAB 3 Refills Testosterone Cypionate (Testosterone Cypionate) 200 Mg/Ml Inj 200 MG IM WK Discharge Exam Review of Systems: Constitutional: No fever, No chills Respiratory: No cough, No sputum, No shortness of breath Cardiovascular: No chest pain, No orthopnea, No edema Abdomen: No pain, No nausea, No diarrhea Musculoskeletal: No joint pain, No muscle pain, No swelling Psychiatric: No depression symptoms, No anhedonism Physical Exam: General Appearance: WD/WN, no apparent distress Eyes: PERRL, EOMI Neck: supple, no JVD Respiratory/Chest: chest non-tender, lungs clear, normal breath sounds Cardiovascular: regular rate, rhythm, no murmur Abdomen / GI: normal bowel sounds, non tender, soft Neurologic/Psychiatric: alert, oriented x 3 Hospital Course 41 y/o M 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 He was proved correct when an XR elucidated a markedly displaced trimalleolar fracture. 1) Trimalleolar fracture - Orthopedics performed ORIF, will need walker and recovery 2) Panhypopituitarism - we will continue his scheduled medications. s/p stress dose steroids now return to typical 3) JAYDEN - Cr improved from 1.5 to 1.3 - Full code - Heparin held pending ortho eval will recommend follow up with orhto before returning to work did receive walker training prior to discharge Total Time Spent: Greater than 30 minutes This includes examination of the patient, discharge planning, medication reconciliation, and communication with other providers. Discharge Instructions Please refer to the electronic Patient Visit Report (Discharge Instructions) for additional information.
--- NOTE | 2017-06-24 07:43 | Discharge Instructions ---
Discharge Instructions Date of Service Jun 24, 2017. Admission Reason for Admission: Closed Malleolar Fracture Discharge Discharge Diagnosis / Problem: ankle fracture requiring surgery Discharge Goals Goal(s): Diagnostic testing, Therapeutic intervention Activity Recommendations Activity Limitations: as noted below Lifting Limitations: until after follow-up appointment (please use crutches or knee skooter until orthopaedics release you for activity) Shower/Bathe: keep incision dry Weightbearing Status: Right non-weightbearing . Current Hospital Diet Patient's current hospital diet: Regular Diet Discharge Diet Recommended Diet: Regular Diet Procedures Procedures Performed: 1. Open Reduction Internal Fixation Right trimalleolar ankle fracture 2. ORIF Syndesmotic Disruption Pending Studies Studies pending at discharge: no Medical Emergencies . Who to Call and When: Medical Emergencies: If at any time you feel your situation is an emergency, please call 911 immediately. . Non-Emergent Contact Non-Emergency issues call your: Surgeon Call Non-Emergent contact if: temperature is above 101, your pain is unusual for you . . "Provider Documentation" section prepared by Segun Hinds. . Associate Spa Director Recommendations Associate Spa Director Recommendations: ACTIVITY RECOMMENDATIONS: * You are to be NON-WEIGHTBEARING on your operative leg. * May obtain a rolling walker for ambulation. SPECIAL CARE INSTRUCTIONS: * Some drainage onto the dressing is normal and is no cause for alarm. * Some swelling is natural especially after walking. When resting, keep your foot elevated above the level of your heart. * Call the doctor's office at if you notice increased drainage, fever over 101 degrees F. or severe constant pain. * You may take pain medication as directed. BANDAGE: * Leave bandage/cast in place unless otherwise directed. * Keep bandage/cast dry at all times. FOLLOW UP VISIT: If appointment is not already scheduled: Please call [facility] to make a follow-up appointment 10-14 days after your surgery with Dr. Soto or his PA at . VTE Core Measure Inpt VTE Proph given/why not?: Treatment not indicated
[2017-06-24 07:50] VITALS: O2SAT 95
[2017-06-24] MEDS: HYDROCORTISONE 10 MG TAB PO SCH (08:13)
[2017-06-24 10:58] VITALS: BP 95/61; PULSE 68; TEMP 36.8; O2SAT 95
[2017-06-24 11:04] VITALS: BP 93/54; PULSE 68; TEMP 36.8; O2SAT 95
[2017-06-24 15:03] VITALS: BP 105/66; PULSE 53; TEMP 36.6; O2SAT 100
== END 2017-06-24 15:52 | disposition home or self-care (01) | DRG 493 ==
LOC: EDBD 20:01 → C.EDC 20:02 → C.MSN 23:20 → ENRESERV 23:29 → CANRESERV 23:29 → ENRESERV 23:35
PROVIDERS: ADMIT Internal Medicine; ATTEND Hospitalist
PROC: 0SSF04Z Reposition Right Ankle Joint with Internal Fixation Device, Open Approach (ICD-10-PCS; principal; 2017-06-23 13:00)
DX: S82.851A Displaced trimalleolar fracture of right lower leg, initial encounter for closed fracture (principal); E23.0 Hypopituitarism; N17.9 Acute kidney failure, unspecified; W01.0XXA Fall on same level from slipping, tripping and stumbling without subsequent striking against object, initial encounter; Y99.0 Civilian activity done for income or pay

== ENCOUNTER 2020-06-06 16:45 | Observation (INO) ==
--- OUTSIDE RECORDS SUMMARY | 2020-06-06 16:46 | External Medical Summary | Continuity of Care Document ---
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 DRitu Refills: 0 Hydrocortisone 10 MG Oral Tablet; take 2 tablets in AM and 1 tablet in PM. Double doses during periods of stress Donato Villagran Start: 2 Quantity: 135 Refills: 1 Testosterone Cypionate 200 MG/ML OIL; INJECT 1 ML (200 mg) EVERY 1 WEEK Donato Villagran 10 ML Vial Quantity: 1 Refills: 0 Levothyroxine Sodium 200 MCG Oral Tablet; take 1 table t by mouth once daily Donato Villagran Quantity: 30 Refills: 1 Procedures Procedures not documented Immunizations Immunizations not documented Social History - Smoking Status Ex-smoker Plan of Treatment Planned Observations Planned Goals not documented Results No Known Results Results not documented
[2020-06-06] MEDS ORDERED: cefTRIAXone SODIUM 2,000 MG/70 ML BAG IV STA (17:35)
[2020-06-06] MEDS ORDERED: HYDROCORTISONE SOD SUCCINATE 100 MG/2 ML VIAL IV STA (17:40)
[2020-06-06] MEDS ORDERED: ALBUT/IPRATROP 3MG/0.5MG NEB 3 ML VIAL NEB ONE (17:41)
[2020-06-06] MEDS ORDERED: SODIUM CHLORIDE 0.9% 1000ML 2,000 ML IV ONE (17:41)
--- NOTE | 2020-06-06 18:17 | XRay Report ---
XR chest 1V portable HISTORY: 44 years-old Male SEPSIS acute sepsis with cough COMPARISON: Chest radiograph 06/22/2017 TECHNIQUE: Portable AP view of the chest FINDINGS: Ill-defined asymmetric left lung base opacities. Cardiomediastinal and hilar silhouettes are within n ormal pneumothorax, pleural effusion or overt pulmonary. The bones of the chest appear grossly intact . IMPRESSION: Ill-defined asymmetric left lung base opacities may reflect summation density, atelectasi s or developing pneumonitis. ACT 112: Negative or not required by law. The above report was generated using voice recognition software. It may contain grammatical, syntax o r spelling errors. Electronically signed by: Veto Amin M.D. 06/06/2020 6:16 PM
--- NOTE | 2020-06-06 18:26 | Emergency Department Note ---
Impression & Plan Pneumonia, Chronic adrenal insufficiency, Panhypopituitarism ED Provider Note NAME: GUILLERMO NORWOOD AGE: 44 SEX: M ARRIVES VIA: Walk-In INFORMANT: Patient ED PROVIDER(S): Apollo Toure MD CHIEF COMPLAINT: Fevers, cough, shortness of breath, body aches PLAN: Disposition: Admit MEDICAL DECISION MAKING: The patient is a pleasant 44-year-old gentleman with a past medical history of pituitary adenoma status post resection with subsequent adrenal insufficiency on hydrocortisone and levothyroxine who presents emergency department with cough congestion, fevers, body aches that evolved over the past several days. He reports not missing his daily hydrocortisone but did not take any increased doses as he usually would do when ill. 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 He denies any known contacts with individuals diagnosed with COVID-19. He denies smoking cigarettes or any other products. On arrival the patient is uncomfortable with mild dyspnea but afebrile with stable vital signs. His oxygen is 94% on room air. EKG without evidence of overt acute ischemia. CXR with likely developing pna given patient's sx. WBC 11.8. H/H 12.8/36.4 without recent for comparison. Platelets wnl. LFTs unremarkable. Troponin negative/undetectable. Procalcitonin < 0.32. Patient was treated empirically upon arrival with CTX and Azithromycin. Additionally given stress dose 100mg hydrocortisone for chronic adrenal insufficiency. Given continuous duoneb for bronchospasm. Patient feeling some improvement. Covid19 ordered and pending. Given patient's chronic adrenal insufficiency with PNA, reasonable to admit for further management. Patient is agreeable with admission. Case was discussed with Dr. Hernandez, [facility] hospitalist, who will evaluate the patient for admission. ABX coverage broadened with Vancomycin and Zosyn for now given likely immunocompromised. Triage Nursing notes reviewed and agree them. Prior medical records reviewed Vital Signs: reviewed and remarkable for no significant abnormalities Differential diagnosis: Cardiac ischemia, aortic dissection, pulmonary embolism, pneumothorax, pneumonia, pericarditis, myocarditis, esophageal rupture, GERD, cholecystitis, pancreatitis, musculoskeletal, as well as other pathologies. ER treatment provided: See below. Diagnostics interpreted by me: ECG: NSR, 74 bpm, no ectopy, no overt ST elevation or depression, artifact present, QTC 419 Cardiac Monitoring: An order for continuous cardiac monitoring was placed and demonstrated NSR, 74 bpm, no ectopy Laboratory studies: See below Imaging studies: XR chest 1V portable HISTORY: 44 years-old Male SEPSIS acute sepsis with cough COMPARISON: Chest radiograph 06/22/2017 TECHNIQUE: Portable AP view of the chest FINDINGS: Ill-defined asymmetric left lung base opacities. Cardiomediastinal and hilar silhouettes are within normal pneumothorax, pleural effusion or overt pulmonary. The bones of the chest appear grossly intact. IMPRESSION: Ill-defined asymmetric left lung base opacities may reflect summation density, atelectasis or developing pneumonitis. Consultation(s): Case was discussed with Dr. Hernandez, [facility] hospitalist, who will evaluate the patient for admission. HPI: The patient is a pleasant 44-year-old gentleman with a past medical history of pituitary adenoma status post resection with subsequent adrenal insufficiency on hydrocortisone and levothyroxine who presents emergency department with cough congestion, fevers, body aches that evolved over the past several days. He reports not missing his daily hydrocortisone but did not take any increased doses as he usually would do when ill. 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 He denies any known contacts with individuals diagnosed with COVID-19. He denies smoking cigarettes or any other products. ROS: See above HPI for pertinent positives & negatives. A total of 10 systems reviewed and were otherwise negative. PAST MEDICAL HISTORY:See Below PAST SURGICAL HISTORY:See Below FAMILY HISTORY:See Below SOCIAL HISTORY:See Below HOME MEDICATIONS:See Below ALLERGIES:See Below VITALS:See Below PHYSICAL EXAMINATION: GENERAL: Awake, alert, uncomfortable, ill-appearing, in no distress HENT: Normocephalic, atraumatic. Oropharynx with dry mucous membranes and otherwise unremarkable.. EYES: Normal conjunctiva. Sclera non-icteric. NECK: Supple. No nuchal rigidity. FROM. No JVD. RESPIRATORY: Scattered wheezes and rhonchi. CARDIAC: Regular rate, normal rhythm. Extremities warm and well perfused. Pulses equal. ABDOMEN: Soft, non-distended. No tenderness to palpation. No rebound or guarding. No masses. RECTAL: Deferred. MUSCULOSKELETAL: Chest examination reveals no tenderness. The back is symmetrical on inspection without obvious abnormality. There is no CVA tenderness to palpation. No joint edema. LOWER EXTREMITIES: Calves are equal size bilaterally and non-tender. No edema. No discoloration. NEURO: Normal sensorium. No sensory or motor deficits noted. SKIN: No rash or jaundice noted. ED COURSE: Critical Care: I have personally spent greater than 75 minutes of critical care time in the direct management of this patient. This includes bedside care, interpretation of diagnostic studies, and testing, discussion with consultants, patient, and family members, and other required patient management activities. This 75 minutes is in excess of all separately billable procedures. Apollo Toure MD Past Med/Surg History Medical History Chronic adrenal insufficiency (Acute) History of pituitary tumor Panhypopituitarism (Acute) Social History Smoking Status: Current every day smoker Feels Safe at Home: Yes Allergies Allergies Allergy/AdvReac Type Severity Reaction Status Date / Time No Known Allergies Allergy Verified 06/06/20 18:55 Home Meds Home Medications Medication Instructions Recorded Confirmed desmopressin 0.1 mg PO HS 06/06/20 06/06/20 hydrocortisone 20 mg PO QAM 06/06/20 06/06/20 levothyroxine [Euthyrox] 112 mcg PO QAM 06/06/20 06/06/20 testosterone cypionate 100 mg IM WK 06/06/20 06/06/20 Results & Data (ED) Vital Signs Vital Signs - 24 hr 06/06/20 16:56 06/06/20 17:36 06/06/20 18:06 Temperature 36.9 C Temperature Source Oral Pulse Rate 86 Pulse Rate [Apical] Pulse Rate from SpO2 Sensor Pulse Rhythm Regular Pulse Strength Normal Respiratory Rate 20 22 Respiratory Effort / Characteristics Non-Labored Spontaneous Non-Labored Spontaneous Respiratory Depth Normal Respiratory Pattern Regular Blood Pressure 107/53 L Blood Pressure Mean 71 Blood Pressure Position Sitting Pulse Oximetry 93 94 94 Oxygen Delivery Method Room Air Room Air Room Air Sepsis Recent Fever Within 48 Hours No Sepsis New/Unexplained Change in Mental Status N/A Sepsis Action Taken by Nursing No Action Required 06/06/20 18:21 06/06/20 18:22 08/03/20 18:30 Temperature Temperature Source Pulse Rate 93 H 79 83 Pulse Rate [Apical] Pulse Rate from SpO2 Sensor 81 84 Pulse Rhythm Pulse Strength Respiratory Rate 20 18 20 Respiratory Effort / Characteristics Respiratory Depth Respiratory Pattern Blood Pressure 134/75 130/72 Blood Pressure Mean 91 82 Blood Pressure Position Pulse Oximetry 93 93 Oxygen Delivery Method Room Air Room Air Room Air Sepsis Recent Fever Within 48 Hours Sepsis New/Unexplained Change in Mental Status Sepsis Action Taken by Nursing 06/06/20 18:31 06/06/20 18:40 06/06/20 19:20 Temperature Temperature Source Pulse Rate 82 85 Pulse Rate [Apical] 75 Pulse Rate from SpO2 Sensor 81 Pulse Rhythm Pulse Strength Respiratory Rate 16 19 16 Respiratory Effort / Characteristics Non-Labored Spontaneous Respiratory Depth Respiratory Pattern Blood Pressure Blood Pressure Mean Blood Pressure Position Pulse Oximetry 93 94 Oxygen Delivery Method Room Air Room Air Sepsis Recent Fever Within 48 Hours Sepsis New/Unexplained Change in Mental Status Sepsis Action Taken by Nursing 06/06/20 19:30 06/06/20 20:00 06/06/20 20:30 Temperature Temperature Source Pulse Rate 72 83 Pulse Rate [Apical] Pulse Rate from SpO2 Sensor Pulse Rhythm Pulse Strength Respiratory Rate 21 21 Respiratory Effort / Characteristics Non-Labored Spontaneous Respiratory Depth Respiratory Pattern Blood Pressure 127/63 115/64 Blood Pressure Mean 90 88 Blood Pressure Position Pulse Oximetry 93 93 Oxygen Delivery Method Room Air Room Air Sepsis Recent Fever Within 48 Hours Sepsis New/Unexplained Change in Mental Status Sepsis Action Taken by Nursing 06/06/20 21:00 06/06/20 21:30 06/06/20 22:09 Temperature Temperature Source Pulse Rate 106 H 89 91 H Pulse Rate [Apical] Pulse Rate from SpO2 Sensor Pulse Rhythm Pulse Strength Respiratory Rate 21 21 17 Respiratory Effort / Characteristics Non-Labored Spontaneous Non-Labored Spontaneous Respiratory Depth Respiratory Pattern Blood Pressure 130/67 133/69 103/59 L Blood Pressure Mean 79 77 74 Blood Pressure Position Pulse Oximetry 93 95 95 Oxygen Delivery Method Room Air Room Air Room Air Sepsis Recent Fever Within 48 Hours Sepsis New/Unexplained Change in Mental Status Sepsis Action Taken by Nursing 06/06/20 22:30 06/06/20 23:00 Temperature Temperature Source Pulse Rate 75 71 Pulse Rate [Apical] Pulse Rate from SpO2 Sensor Pulse Rhythm Pulse Strength Respiratory Rate 19 15 Respiratory Effort / Characteristics Non-Labored Spontaneous Respiratory Depth Respiratory Pattern Blood Pressure 105/55 L 102/53 L Blood Pressure Mean 59 69 Blood Pressure Position Pulse Oximetry 93 93 Oxygen Delivery Method Room Air Room Air Sepsis Recent Fever Within 48 Hours Sepsis New/Unexplained Change in Mental Status Sepsis Action Taken by Nursing Laboratory Data Attestation: I reviewed the patient's lab results. Result diagrams: 06/06/20 18:37 06/06/20 18:29 Lab Results 06/06/20 06/06/20 06/06/20 Range/Units 18:29 18:29 18:29 WBC (4.8-10.8) K/uL RBC (4.7-6.1) M/uL Hgb (14.0-18.0) g/dL Hct (42-52) % MCV (80-100) fL MCH (25-34) pg MCHC (32-36) g/dL RDW Std Deviation (36.4-46.3) fL RDW Coeff of Gideon (11.5-14.5) % Plt Count (130-400) K/uL MPV (7.4-10.4) fL Immature Gran % (Auto) % Neut % (Auto) % Lymph % (Auto) % [place] % (Auto) % Eos % (Auto) % Baso % (Auto) % Neut # (Auto) (1.4-6.5) K/uL Lymph # (Auto) (1.2-3.4) K/uL [place] # (Auto) (0.11-0.59) K/uL Eos # (Auto) (0-0.5) K/uL Baso # (Auto) (0-0.2) K/uL Immature Gran # (Auto) (0.00-0.02) K/uL PT 12.4 H (9.0-12.0) Seconds INR 1.2 H (0.9-1.1) APTT 33.1 H (21.0-31.0) Seconds PTT Ratio 1.2 Sodium 136 (136-145) mmol/L Potassium 3.3 L (3.5-5.1) mmol/L Chloride 101 (98-107) mmol/L Carbon Dioxide 24 (21-32) mmol/L Anion Gap 11.0 (3-11) BUN 10 (7-18) mg/dl Creatinine 0.96 (0.6-1.4) mg/dl Est Cr Clr Drug Dosing 119.2 ml/min Est GFR ( Amer) 111.0 Est GFR (Non-Af Amer) 95.7 BUN/Creatinine Ratio 10.7 (10-20) Glucose 78 (70-99) mg/dl Lactate (0.4-2.0) mmol/L Calcium 8.4 L (8.5-10.1) mg/dl Phosphorus 2.1 L (2.5-4.9) mg/dl Magnesium 2.1 (1.8-2.4) mg/dl Total Bilirubin 1.2 H (0.2-1) mg/dl Direct Bilirubin 0.3 H (0-0.2) mg/dl AST 13 L (15-37) U/L ALT 13 (12-78) U/L Alkaline Phosphatase 81 (45-117) U/L Troponin I < 0.015 (0-0.045) ng/ml Total Protein 7.9 (6.4-8.2) gm/dl Albumin 3.5 (3.4-5.0) gm/dl Globulin 4.4 H (2.5-4.0) gm/dl Albumin/Globulin Ratio 0.8 L (0.9-2) Procalcitonin 0.32 (0-0.5) ng/ml TSH < 0.005 L (0.300-4.500) uIu/ml Free T4 0.91 (0.8-1.6) ng/dl COVID-19 PCR (Negative) 06/06/20 06/06/20 06/06/20 Range/Units 18:37 18:37 19:15 WBC 11.85 H (4.8-10.8) K/uL RBC 4.47 L (4.7-6.1) M/uL Hgb 12.8 L (14.0-18.0) g/dL Hct 36.4 L (42-52) % MCV 81.4 (80-100) fL MCH 28.6 (25-34) pg MCHC 35.2 (32-36) g/dL RDW Std Deviation 42.8 (36.4-46.3) fL RDW Coeff of Gideon 14.4 (11.5-14.5) % Plt Count 153 (130-400) K/uL MPV 10.6 H (7.4-10.4) fL Immature Gran % (Auto) 0.2 % Neut % (Auto) 71.9 % Lymph % (Auto) 15.5 % [place] % (Auto) 9.0 % Eos % (Auto) 3.1 % Baso % (Auto) 0.3 % Neut # (Auto) 8.51 H (1.4-6.5) K/uL Lymph # (Auto) 1.84 (1.2-3.4) K/uL [place] # (Auto) 1.07 H (0.11-0.59) K/uL Eos # (Auto) 0.37 (0-0.5) K/uL Baso # (Auto) 0.04 (0-0.2) K/uL Immature Gran # (Auto) 0.02 (0.00-0.02) K/uL PT (9.0-12.0) Seconds INR (0.9-1.1) APTT (21.0-31.0) Seconds PTT Ratio Sodium (136-145) mmol/L Potassium (3.5-5.1) mmol/L Chloride (98-107) mmol/L Carbon Dioxide (21-32) mmol/L Anion Gap (3-11) BUN (7-18) mg/dl Creatinine (0.6-1.4) mg/dl Est Cr Clr Drug Dosing ml/min Est GFR ( Amer) Est GFR (Non-Af Amer) BUN/Creatinine Ratio (10-20) Glucose (70-99) mg/dl Lactate 0.7 (0.4-2.0) mmol/L Calcium (8.5-10.1) mg/dl Phosphorus (2.5-4.9) mg/dl Magnesium (1.8-2.4) mg/dl Total Bilirubin (0.2-1) mg/dl Direct Bilirubin (0-0.2) mg/dl AST (15-37) U/L ALT (12-78) U/L Alkaline Phosphatase (45-117) U/L Troponin I (0-0.045) ng/ml Total Protein (6.4-8.2) gm/dl Albumin (3.4-5.0) gm/dl Globulin (2.5-4.0) gm/dl Albumin/Globulin Ratio (0.9-2) Procalcitonin (0-0.5) ng/ml TSH (0.300-4.500) uIu/ml Free T4 (0.8-1.6) ng/dl COVID-19 PCR NEGATIVE (Negative) Administered Medications Discontinued Medications Albuterol (Duoneb) 12 ml NEB ONE ONE Stop: 06/06/20 17:42 Last Admin: 06/06/20 19:18 Dose: 12 ml Documented by: [id number] Azithromycin (Zithromax) 500 mg PO NOW ONE Stop: 06/06/20 19:10 Last Admin: 06/06/20 20:33 Dose: 500 mg Documented by: [id number] Hydrocortisone Sodium Succinate (Solu-Cortef) 100 mg IV NOW STA Stop: 06/06/20 17:41 Last Admin: 06/06/20 18:28 Dose: 100 mg Documented by: [id number] Ceftriaxone Sodium (Rocephin) 2,000 mg in 70 mls @ 140 mls/hr IV NOW STA Stop: 06/06/20 18:04 Last Admin: 06/06/20 20:20 Dose: Not Given Documented by: [id number] Sodium Chloride (Nss 1000ml) 2,000 mls @ 999 mls/hr IV .Q2H1M ONE Stop: 06/06/20 19:41 Last Infusion: 06/06/20 20:21 Dose: 0 mls/hr Documented by: [id number] Admin: 06/06/20 18:28 Dose: 999 mls/hr Documented by: [id number] Piperacillin Sod/Tazobactam Sod (Zosyn) 4.5 gm in 120 mls @ 240 mls/hr IV NOW ONE Stop: 06/06/20 20:02 Last Infusion: 06/06/20 20:58 Dose: 0 mls/hr Documented by: [id number] Admin: 06/06/20 20:18 Dose: 240 mls/hr Documented by: [id number] Vancomycin HCl 2,000 mg/ (Sodium Chloride) 540 mls @ 200 mls/hr IV NOW ONE Stop: 06/06/20 22:14 Last Admin: 06/06/20 20:36 Dose: 200 mls/hr Documented by: [id number] Blood Pressure Blood Pressure Findings: Normal blood pressure Blood Pressure Disposition: further management by hospitalist Discharge Plan Visit Data Chief Complaint: Cough Stated Complaint: RUNNY NOSE, COUGH, NAUSEA, WEAK ED Provider: Apollo Toure Discharge Problem: Pneumonia, Chronic adrenal insufficiency, Panhypopituitarism
[2020-06-06 18:44] LABS: Basophils # (auto) 0.04 K/uL (0-0.2); Basophils % (auto) 0.3 %; Eosinophils # (auto) 0.37 K/uL (0-0.5); Eosinophils % (auto) 3.1 %; Hematocrit (blood only) 36.4 % (42-52); Hemoglobin 12.8 g/dL (14.0-18.0); Immature Granulocytes # (auto) 0.02 K/uL (0.00-0.02); Immature Granulocytes % (auto) 0.2 %; Lymphocytes # (auto) 1.84 K/uL (1.2-3.4); Lymphocytes % (auto) 15.5 %; Mean Corpuscular Hemoglobin 28.6 pg (25-34); Mean Corpuscular Hgb Conc 35.2 g/dL (32-36); Mean Corpuscular Volume 81.4 fL (80-100); Mean Platelet Volume 10.6 fL (7.4-10.4); Monocytes # (auto) 1.07 K/uL (0.11-0.59); Neutrophils # (auto) 8.51 K/uL (1.4-6.5); Neutrophils % (auto) 71.9 %; Platelet Count 153 K/uL (130-400); RDW Coefficient of Variation 14.4 % (11.5-14.5); RDW Standard Deviation 42.8 fL (36.4-46.3); Red Blood Count 4.47 M/uL (4.7-6.1); White Blood Count 11.85 K/uL (4.8-10.8)
[2020-06-06 19:02] LABS: Alanine Aminotransferase 13 U/L (12-78); Albumin Level 3.5 gm/dl (3.4-5.0); Aspartate Aminotransferase 13 U/L (15-37); BUN Creatinine Ratio 10.7 (10-20); Bilirubin Direct 0.3 mg/dl (0-0.2); Blood Urea Nitrogen 10 mg/dl (7-18); Calcium 8.4 mg/dl (8.5-10.1); Carbon Dioxide 24 mmol/L (21-32); Chloride 101 mmol/L (98-107); Creatinine Clr Calc Pharmacy 119.2 ml/min; Est GFR (Non-African American) 95.7; Glucose 78 mg/dl (70-99); Magnesium 2.1 mg/dl (1.8-2.4); Potassium 3.3 mmol/L (3.5-5.1); Sodium 136 mmol/L (136-145)
[2020-06-06] MEDS ORDERED: AZITHROMYCIN 250 MG TAB PO ONE (19:09)
[2020-06-06 19:13] LABS: Albumin Globulin Ratio 0.8 (0.9-2); Alkaline Phosphatase 81 U/L (45-117); Bilirubin,Total 1.2 mg/dl (0.2-1); Globulin 4.4 gm/dl (2.5-4.0); Phosphorus 2.1 mg/dl (2.5-4.9); Thyroid Stimulating Hormone < 0.005 uIu/ml (0.300-4.500); Total Protein 7.9 gm/dl (6.4-8.2); Troponin I < 0.015 ng/ml (0-0.045)
[2020-06-06 19:20] LABS: INR 1.2 (0.9-1.1); Partial Thromboplastin Ratio 1.2; Partial Thromboplastin Time 33.1 Seconds (21.0-31.0); Prothrombin Time 12.4 Seconds (9.0-12.0)
[2020-06-06 19:25] LABS: T4 Free Thyroxine 0.91 ng/dl (0.8-1.6)
[2020-06-06] MEDS ORDERED: PIPERACILL/TAZOBAC CONSULT ACTIVE PRN ×2 (19:33→23:33)
[2020-06-06] MEDS ORDERED: VANCOMYCIN CONSULT ACTIVE PRN ×2 (19:33→23:33)
[2020-06-06] MEDS ORDERED: VANCOMYCIN HCL 2,000 MG in SODIUM CHLORIDE 0.9% 500 ML IV ONE (19:33)
[2020-06-06] MEDS ORDERED: PIPERACILLIN/TAZOBACTAM 4.5 GM/120 ML BAG IV ONE (19:33)
--- NOTE | 2020-06-06 21:27 | History & Physical Report ---
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 ?LLL pneumonia Chest x-ray: Ill-defined asymmetric left lung base opacities may reflect summation density, atelectasis or developing pneumonitis Patient was COVID negative in ED WBC 11.85, Procalcitonin 0.32, afebrile on admission Given patient's immunocompromised status will continue broad coverage with IV Vanco/Zosyn and p.o. azithromycin. Can narrow moving forward Mucinex, Tessalon Perles as needed for cough Blood cultures pending Panhypopituitarism TSH<0.005, free T4 WNL 0.91 on admission. Patient given IV hydrocortisone 100 mg in the ED We will continue IV hydrocortisone 100 mg every 8 hour x2 days. After which can resume home p.o. 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 This has been going on for the past few days. Patient notes that he had similar symptoms a couple weeks ago, which prompted a visit to [facility] where he was observed overnight and then discharged. Patient notes that he never really recovered from these symptoms, but the past few days have been worse so he presented to the ED. Patient has tried Mucinex for symptoms with some relief. Associated fatigue, chills, rhinorrhea with yellow-green phlegm, some [facility]IS[facility]. Patient otherwise denies any nausea, vomiting, diarrhea, productive cough, diaphoresis, headache, abdominal pain, orthopnea, PND, known sick contacts or recent travel anywhere. 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 Patient notes that usually in the past whenever he is sick he takes increased doses of his hydrocortisone, however he has not done so this time around. Patient denies any tobacco use. Patient with no other acute concerns or complaints. Pertinent labs: WBC 11.5, hemoglobin 12.8, potassium 3.3, phosphorus 2.1, T bili 1.2, TSH<0.005, free T4 WNL 0.91, pro-Christopher WNL 0.32 Chest x-ray: Ill-defined asymmetric left lung base opacities may reflect summation density, atelectasis or developing pneumonitis ER course: Albuterol neb, p.o. azithromycin 500 mg, IV Zosyn 4.5 g, IV vancomycin 2 g, IV hydrocortisone 100 mg, NSS 2 L Allergies Allergy/AdvReac Type Severity Reaction Status Date / Time No Known Allergies Allergy Verified 06/06/20 18:55 Home Medications Home Medications Medication Instructions Recorded Confirmed Type desmopressin 0.1 mg PO HS 06/06/20 06/06/20 History hydrocortisone 20 mg PO QAM 06/06/20 06/06/20 History levothyroxine [Euthyrox] 112 mcg PO QAM 06/06/20 06/06/20 History testosterone cypionate 100 mg IM WK 06/06/20 06/06/20 History Past Med/Surg History Medical History Chronic adrenal insufficiency (Acute) History of pituitary tumor Panhypopituitarism (Acute) Social History Smoking Status: Former smoker Hx Alcohol Use: Yes Hx Substance Use: Yes Last Used Substance Other:: years Preferred Language: Burmese Communication Ability: Effective [employer] Required: No Beliefs That Will Affect Care: None Current Living Situation: Family Other Information That Helps Us Care for You: No Feels Safe at Home: Yes Safety Concerns: Feels Safe At This Time Review of Systems Review of Systems: All systems reviewed & are unremarkable except as noted in HPI & below Physical Exam Constitutional: + ill appearing ENMT: Mouth: + oral mucosal abnormality (dry mm) Respiratory: normal respiratory effort; no respiratory distress Auscultation: + rhonchi and + wheezes Cardiovascular: RRR, no murmur, no edema Gastrointestinal (Abdomen): normal bowel sounds, soft, nontender, no hepatosplenomegaly Skin: no rashes, warm and dry Psychiatric: A+Ox3, euthymic affect Results & Data Results & Data ([facility]) Vital Signs (Past 12 Hours) Vital Signs Temp Pulse Pulse Resp BP Pulse Ox 06/06/20 19:20 75 16 94 06/06/20 18:40 85 19 06/06/20 18:31 82 16 93 06/06/20 18:30 83 20 130/72 93 06/06/20 18:22 79 18 134/75 93 06/06/20 18:21 93 H 20 06/06/20 18:06 94 06/06/20 17:36 22 94 06/06/20 16:56 36.9 C 86 20 107/53 L 93 Laboratory Results Laboratory Results - last 24 hr 06/06/20 06/06/20 06/06/20 18:29 18:29 18:29 WBC RBC Hgb Hct MCV MCH MCHC RDW Std Deviation RDW Coeff of Gideon Plt Count MPV Immature Gran % (Auto) Neut % (Auto) Lymph % (Auto) [place] % (Auto) Eos % (Auto) Baso % (Auto) Neut # (Auto) Lymph # (Auto) [place] # (Auto) Eos # (Auto) Baso # (Auto) Immature Gran # (Auto) PT 12.4 H INR 1.2 H APTT 33.1 H PTT Ratio 1.2 Sodium 136 Potassium 3.3 L Chloride 101 Carbon Dioxide 24 Anion Gap 11.0 BUN 10 Creatinine 0.96 Est Cr Clr Drug Dosing 119.2 Est GFR ( Amer) 111.0 Est GFR (Non-Af Amer) 95.7 BUN/Creatinine Ratio 10.7 Glucose 78 Lactate Calcium 8.4 L Phosphorus 2.1 L Magnesium 2.1 Total Bilirubin 1.2 H Direct Bilirubin 0.3 H AST 13 L ALT 13 Alkaline Phosphatase 81 Troponin I < 0.015 Total Protein 7.9 Albumin 3.5 Globulin 4.4 H Albumin/Globulin Ratio 0.8 L Procalcitonin 0.32 TSH < 0.005 L Free T4 0.91 COVID-19 PCR 06/06/20 06/06/20 06/06/20 18:37 18:37 19:15 WBC 11.85 H RBC 4.47 L Hgb 12.8 L Hct 36.4 L MCV 81.4 MCH 28.6 MCHC 35.2 RDW Std Deviation 42.8 RDW Coeff of Gideon 14.4 Plt Count 153 MPV 10.6 H Immature Gran % (Auto) 0.2 Neut % (Auto) 71.9 Lymph % (Auto) 15.5 [place] % (Auto) 9.0 Eos % (Auto) 3.1 Baso % (Auto) 0.3 Neut # (Auto) 8.51 H Lymph # (Auto) 1.84 [place] # (Auto) 1.07 H Eos # (Auto) 0.37 Baso # (Auto) 0.04 Immature Gran # (Auto) 0.02 PT INR APTT PTT Ratio Sodium Potassium Chloride Carbon Dioxide Anion Gap BUN Creatinine Est Cr Clr Drug Dosing Est GFR ( Amer) Est GFR (Non-Af Amer) BUN/Creatinine Ratio Glucose Lactate 0.7 Calcium Phosphorus Magnesium Total Bilirubin Direct Bilirubin AST ALT Alkaline Phosphatase Troponin I Total Protein Albumin Globulin Albumin/Globulin Ratio Procalcitonin TSH Free T4 COVID-19 PCR NEGATIVE Medications Administered Current Inpatient Medications Vancomycin HCl 2,000 mg/ (Sodium Chloride) 540 mls @ 200 mls/hr IV NOW ONE Stop: 06/06/20 22:14 Last Admin: 06/06/20 20:36 Dose: 200 mls/hr Documented by: [email or web address] Information (Consult) 1 ea N/A UD PRN PRN Reason: Consult Stop: 07/06/20 19:32 Miscellaneous Information (Consult) 1 ea N/A UD PRN PRN Reason: Consult Stop: 07/06/20 19:32 Code Status & VTE Plan Code Status Full Resident Activity Tracking Resident Involvement: Resident Care Provided Care Provided: Adult Hospital Medicine
[2020-06-06] MEDS ORDERED: BENZONATATE 100 MG CAPSULE PO PRN (23:33)
[2020-06-06] MEDS ORDERED: ACETAMINOPHEN 325 MG TAB PO PRN (23:33)
[2020-06-06] MEDS ORDERED: ALUMINUM/MAGNESIUM SUSP 30 ML UDC PO PRN (23:33)
[2020-06-06] MEDS ORDERED: ONDANSETRON INJ 2 MG/ML 2 ML VIAL IV PRN (23:33)
[2020-06-07] MEDS ORDERED: POTASSIUM CHLORIDE 20 MEQ TABCR PO STA (00:28)
[2020-06-07] MEDS: PIPERACILLIN/TAZOBACTAM 3.375 GM in DEXTROSE 5% 100 ML IV SCH ×2 (01:02→09:32)
[2020-06-07] MEDS: HYDROCORTISONE SOD 100 MG in SYRINGE 0 ML IV SCH ×3 (01:02→18:00)
[2020-06-07] MEDS ORDERED: SODIUM PHOSPHATE 3 MMOL/1 ML INFUSION IV STA (01:15)
[2020-06-07] MEDS ORDERED: SODIUM PHOSPHATE 21 MMOL in SODIUM CHLORIDE 0.9% 500 ML IV ONE (01:30)
--- NOTE | 2020-06-07 03:32 | Pharmacy Report ---
Pharmacy Abx Initial Consult - Date of Service June 07, 2020 - Pharmacy Dosing Scope Date of Consult: 06/06/20 Consultation requested by: Dr. Kaitlin Silva Pharmacy is consulted to continue Zosyn/Vancomycin IV dosing therapy begun in ED, order appropriate labs and adjust drug dose/frequency. - Subjective The patient is a 44 year old M admitted on 06/06/20 22:33 who presents with cough, congestion, aches and occasional fever and some yellow-green phlegm noted. His chest x-ray seems to indicate a PNX. He was recently seen in [facility] where he was kept for observation, treated, released and recovered fairly quickly. Today he is admitted by Dr. Silva for PNX and ordered Vancomycin and Zosyn along with Zithromycin. He was negative for Covid prior to admission. - Objective Height: 5 ft 10 in Weight: 104.2 kg Vital Signs (Past 12hrs): Vital Signs Temp Pulse Pulse Resp BP BP Pulse Ox 06/06/20 23:46 36.8 C 79 18 118/59 L 93 06/06/20 23:00 71 15 102/53 L 93 06/06/20 22:30 75 19 105/55 L 93 06/06/20 22:09 91 H 17 103/59 L 95 06/06/20 21:30 89 21 133/69 95 06/06/20 21:00 106 H 21 130/67 93 06/06/20 20:00 83 21 115/64 93 06/06/20 19:30 72 21 127/63 93 06/06/20 19:20 75 16 94 06/06/20 18:40 85 19 06/06/20 18:31 82 16 93 06/06/20 18:30 83 20 130/72 93 06/06/20 18:22 79 18 134/75 93 06/06/20 18:21 93 H 20 06/06/20 18:06 94 06/06/20 17:36 22 94 06/06/20 16:56 36.9 C 86 20 107/53 L 93 Lab Results (24hrs): Laboratory Tests (24 Hours) 06/06/20 06/06/20 06/06/20 18:37 18:29 18:29 WBC 11.85 H Neut # (Auto) 8.51 H Creatinine 0.96 Est Cr Clr Drug Dosing 119.2 Procalcitonin 0.32 Micro Results: 06/06/20 19:00 Aerobic Blood Culture - Pending Blood Anaerobic Blood Culture - Pending 06/06/20 19:15 Aerobic Blood Culture - Pending Blood Anaerobic Blood Culture - Pending - Risk Factors for Resistance * Immunocompromised (chronic steroid therapy, chemotherapy, immunomodulators) on Hydrocortisone - Assessment & Plan Assessment 44 year old M with PNX Plan Vancomycin IV * Estimated PK Parameters: Vd 0.6 L/kg, Marcelo 0.103 hr-1, t1/2 6.72 hr * Loading dose: 2000 mg (~19mg/kg) * Maintenance dose: 1500 mg IV (~14 mg/kg) every 8 hours * Goal trough level : 15-20 mcg/mL * Trough level ordered prior to 0600 dose on 06/08/20 * A less than traditional dose and/or extended dosing interval has/have been selected due to likelihood of drug accumulation in obese patient * MRSA nasal swab pending Piperacillin/tazobactam * 4.5 g bolus administered over 30 minutes in ED, then 3.375g IV extended infusion every 8 hours for CrCl greater than 20 mL/min Pharmacy will continue to follow and will adjust dose/frequency as necessary. Thank you.
[2020-06-07 04:33] LABS: Appearance Urine Clear (Clear); Bilirubin Urine Negative (Negative); Blood Urine Negative (Negative); Color Urine Yellow; Glucose Urine UA Negative (Negative); Ketones Urine 1+ (Negative); Leukocyte Esterase Urine Negative (Negative); Nitrite Urine Negative (Negative); Protein Urine Negative (Negative); Specific Gravity Urine 1.007 (1.000-1.030); Urobilinogen Urine Negative (Negative)
[2020-06-07] MEDS: LEVOTHYROXINE SODIUM 112 MCG TABLET PO SCH (05:06)
[2020-06-07] MEDS: VANCOMYCIN HCL 1,500 MG in SODIUM CHLORIDE 0.9% 500 ML IV SCH ×2 (05:06→13:49)
[2020-06-07 07:01] LABS: Basophils # (auto) 0.01 K/uL (0-0.2); Basophils % (auto) 0.1 %; Eosinophils # (auto) 0.01 K/uL (0-0.5); Eosinophils % (auto) 0.1 %; Hematocrit (blood only) 31.9 % (42-52); Hemoglobin 10.9 g/dL (14.0-18.0); Immature Granulocytes # (auto) 0.03 K/uL (0.00-0.02); Immature Granulocytes % (auto) 0.4 %; Lymphocytes % (auto) 6.4 %; Mean Corpuscular Hemoglobin 27.8 pg (25-34); Mean Corpuscular Hgb Conc 34.2 g/dL (32-36); Mean Corpuscular Volume 81.4 fL (80-100); Mean Platelet Volume 10.9 fL (7.4-10.4); Monocytes % (auto) 3.9 %; Neutrophils # (auto) 6.92 K/uL (1.4-6.5); Neutrophils % (auto) 89.1 %; Platelet Count 140 K/uL (130-400); RDW Coefficient of Variation 14.6 % (11.5-14.5); RDW Standard Deviation 43.3 fL (36.4-46.3); Red Blood Count 3.92 M/uL (4.7-6.1); White Blood Count 7.77 K/uL (4.8-10.8)
[2020-06-07 07:39] LABS: Est GFR (African American) 137.1; Est GFR (Non-African American) 118.3; Potassium 3.8 mmol/L (3.5-5.1)
[2020-06-07] MEDS: guaiFENesin 600 MG TABCR PO SCH ×2 (07:39→21:48)
[2020-06-07] MEDS: ENOXAPARIN INJ 40 MG/0.4 ML SYR SQ SCH (07:39)
[2020-06-07 07:40] LABS: Calcium 7.9 mg/dl (8.5-10.1); Creatinine Clr Calc Pharmacy 175.3 ml/min
--- NOTE | 2020-06-07 11:05 | Electrocardiogram Report ---
Test Reason : Blood Pressure : / mmHG Vent. Rate : 074 BPM Atrial Rate : 074 BPM P-R Int : 166 ms QRS Dur : 104 ms QT Int : 378 ms P-R-T Axes : 060 031 046 degrees QTc Int : 419 ms Normal sinus rhythm with sinus arrhythmia Incomplete right bundle branch block Normal ECG When compared with ECG of 22-JUN-2017 21:53, ST elevation now present in Lateral leads Nonspecific T wave abnormality no longer evident in Inferior leads Nonspecific T wave abnormality no longer evident in Lateral leads Confirmed by Clay Brambila ([id number]) on 06/07/2020 11:05:10 AM Referred By: REFERRED SELF Confirmed By:Zaki Brambila
--- NOTE | 2020-06-07 16:54 | Medical Student Progress Note ---
Date of Service June 07, 2020 Assessment & Plan (1) Pneumonia: Mr. 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 LLL pneumonia Chest x-ray: Ill-defined asymmetric left lung base opacities may reflect summation density, atelectasis or developing pneumonitis. Patient was COVID negative in ED. WBC down to 7.77 today from 11.85 yesterday, Procalcitonin 0.32, continues to be afebrile in the hospital. Abx narrowed to azithromycin and amoxicillin-clavulanate given non-toxic clinical picture. Transitioned to PO in preparation for discharge. Mucinex, Tessalon Perles as needed for cough. Breathing treatments BID. Blood cultures pending. Panhypopituitarism TSH<0.005, free T4 WNL 0.91 on admission. Patient given IV hydrocortisone 100 mg in the ED. We will continue IV hydrocortisone 100 mg every 8 hour x 2 days. After which can resume home p.o. 20 mg regimen. We will continue patient's desmopressin 0.1 mg, levothyroxine 112 mcg and he will go home on these medications. Bradycardia, new for 06/07/20 -Compliant w/ home meds for panhypopitutarism, but did not increase doses to account for acute illness (pneumonia). -Patient provided hx of pericardial effusion 20 years ago. -Heart rate in the 40s-50s, asymptomatic. -Vague description of chest discomfort for a few days, thought to be related to the pneumonia. -Trop neg x1 on ED admission -Ecg ordered, did not show ischemic changes. -Will continue to monitor. FEN/GI: Regular diet DVT prophylaxis: Lovenox SQ Full code Dispo: Med Surg Supervising Attestation I personally examined the patient and verified all sotelo points of history and exam, discussed case, and agree with decision making with Sudeep Goodwin MS3 feeling better but not yet up to going home. vitals noted nad heent nc at mmm lungs overall clear except for faint area of nonspecific harsh inspiratory sound base L no accessory muscles good effort skin no rashes no pallor or icterus CAP - improving. without severe infection so can de-escalate. hopefully home tomorrow otherwise as above Subjective Mr. Jorge is feeling better today but still endorses some general fatigue and malaise. He does not endorse fever, chills, nausea, vomiting, or shortness of breath. He has had some cough which has been none productive. He reports that the breathing treatments were helpful in improving his chest congestion. He does not have any concerns with ambulation, defecation, or alimentation. Review of Systems Review of Systems: All systems reviewed & are unremarkable except as noted in HPI & below Constitutional: Denies fever, chills Eyes: Denies vision changes ENT: Denies sore throat Cardiovascular: As per HPI Respiratory: Positive for cough. Denies shortness of breath, sputum production, difficulty breathing Gastrointestinal: Denies abdominal pain, nausea, vomiting, constipation, diarrhea Genitourinary: Denies urinary symptoms including dysuria Musculoskeletal: Denies weakness Neurological: Denies headache, numbness, tingling, focal weakness Physical Exam Constitutional: WD/WN, vitals as above Eyes: PERRL, conjunctivae normal, anicteric sclerae ENMT: external ear and nose normal, oropharynx normal Mouth: + oral mucosal abnormality (dry mm) Neck: trachea midline, no thyromegaly Respiratory: normal respiratory effort; no respiratory distress Auscultation: + rhonchi (slight; concentrated over the lower left lobe ) and + wheezes (slight; concentrated over the lower left lobe ) Cardiovascular: RRR, no murmur, no edema Chest (Breasts): Additional Comments: Not examined. Gastrointestinal (Abdomen): normal bowel sounds, soft, nontender, no hepatosplenomegaly Musculoskeletal: no cyanosis or clubbing, extremities motor strength 5/5 Skin: no rashes, warm and dry Neurologic: patellar DTR's 2+ bilat, sensation intact Psychiatric: A+Ox3, euthymic affect Genitourinary: Not examined. Lymphatic: no cervical or axillary lymphadenopathy Results & Data ([facility]) Vital Signs (Past 12 Hours) Vital Signs Temp Pulse Resp BP Pulse Ox 06/07/20 07:02 36.5 C 51 L 18 104/56 L 97 WBC: 7.77
[2020-06-07] MEDS: AMOXICILLIN/CLAVULANATE 875 MG TAB PO SCH (18:00)
--- NOTE | 2020-06-07 19:07 | Billing Data ---
Date of Service June 07, 2020 Coding Level of Care Code 89746 Subseq Obs Care Lvl 2
--- NOTE | 2020-06-07 19:51 | Billing Data ---
Date of Service June 07, 2020 Coding Level of Care Code 42040 Initial Inpt Care Lvl 3
[2020-06-07] MEDS ORDERED: AZITHROMYCIN 250 MG TAB PO SCH (21:00)
[2020-06-07] MEDS ORDERED: DESMOPRESSIN ACETATE 0.1 MG TAB PO SCH (21:00)
[2020-06-07] MEDS: CALCIUM 600MG + VIT D 400 IU TAB PO SCH (21:48)
[2020-06-07] MEDS ORDERED: MoRPHine SULFATE 2 MG/ML CARP IV STA (22:14)
[2020-06-08] MEDS: HYDROCORTISONE SOD 100 MG in SYRINGE 0 ML IV SCH ×2 (02:09→10:27)
[2020-06-08] MEDS ORDERED: VANCOMYCIN TROUGH ONE (05:30)
[2020-06-08] MEDS: LEVOTHYROXINE SODIUM 112 MCG TABLET PO SCH (05:56)
[2020-06-08 06:29] LABS: Calcium 8.4 mg/dl (8.5-10.1); Creatinine Clr Calc Pharmacy 175.3 ml/min; Est GFR (African American) 137.1; Est GFR (Non-African American) 118.3
[2020-06-08 07:52] LABS: Hematocrit (blood only) 31.1 % (42-52); Hemoglobin 10.6 g/dL (14.0-18.0); Mean Corpuscular Hgb Conc 34.1 g/dL (32-36); Mean Corpuscular Volume 82.3 fL (80-100); Mean Platelet Volume 11.7 fL (7.4-10.4); Platelet Count 175 K/uL (130-400); RDW Coefficient of Variation 14.6 % (11.5-14.5); RDW Standard Deviation 44.1 fL (36.4-46.3); Red Blood Count 3.78 M/uL (4.7-6.1); White Blood Count 9.53 K/uL (4.8-10.8)
[2020-06-08] MEDS: guaiFENesin 600 MG TABCR PO SCH (10:18)
[2020-06-08] MEDS: AMOXICILLIN/CLAVULANATE 875 MG TAB PO SCH (10:18)
[2020-06-08] MEDS: CALCIUM 600MG + VIT D 400 IU TAB PO SCH (10:18)
[2020-06-08] MEDS: ENOXAPARIN INJ 40 MG/0.4 ML SYR SQ SCH (10:19)
--- NOTE | 2020-06-08 10:23 | XCELERA ---
[id number]
--- NOTE | 2020-06-08 11:45 | Electrocardiogram Report ---
Test Reason : Blood Pressure : / mmHG Vent. Rate : 052 BPM Atrial Rate : 052 BPM P-R Int : 138 ms QRS Dur : 100 ms QT Int : 446 ms P-R-T Axes : -27 -20 078 degrees QTc Int : 414 ms Sinus bradycardia Low voltage QRS Cannot rule out Inferior infarct , age undetermined Abnormal ECG When compared with ECG of 06-JUN-2020 18:13, Nonspecific T wave abnormality now evident in Inferior leads Confirmed by Clay Brambila ([id number]) on 06/08/2020 11:45:42 AM Referred By: REFERRED SELF Confirmed By:Zaki Brambila
[2020-06-08 12:25] LABS: Lyme Ab IgG w/WB Rflx Negative (Negative)
[2020-06-08 12:26] LABS: Lyme Ab IgM w/WB Rflx Negative (Negative)
--- NOTE | 2020-06-08 13:11 | Med Student Discharge Summary ---
Date of Service June 08, 2020 Admission HPI Per Admitting Provider 44-year-old male with past medical history panhypopituitarism secondary to pituitary adenoma status post resection on hydrocortisone, levothyroxine, desmopressin, testosterone presents with concerns of sick symptoms including cough, congestion, subjective fevers, myalgias. This has been going on for the past few days. Patient notes that he had similar symptoms a couple weeks ago, which prompted a visit to [facility] where he was observed overnight and then discharged. Patient notes that he never really recovered from these symptoms, but the past few days have been worse so he presented to the ED. [place] guadarrama has tried Mucinex for symptoms with some relief. Associated fatigue, chills, rhinorrhea with yellow-green phlegm, some [facility]. Patient otherwise denies any nausea, vomiting, diarrhea, productive cough, diaphoresis, headache, abdominal pain, orthopnea, PND, known sick contacts or recent travel anywhere. 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 Patient notes that usually in the past whenever he is sick he takes increased doses of his hydrocortisone, however he has not done so this time around. Patient denies any tobacco use. Patient with no other acute concerns or complaints. Pertinent labs: WBC 11.5, hemoglobin 12.8, potassium 3.3, phosphorus 2.1, T bili 1.2, TSH<0.005, free T4 WNL 0.91, pro-Christopher WNL 0.32 Chest x-ray: Ill-defined asymmetric left lung base opacities may reflect summat ion density, atelectasis or developing pneumonitis ER course: Albuterol neb, p.o. azithromycin 500 mg, IV Zosyn 4.5 g, IV vancomycin 2 g, IV hydrocortisone 100 mg, NSS 2 L Admission Exam (Per Admitting) Constitutional + ill appearing ENMT Mouth: + oral mucosal abnormality (dry mm) Respiratory normal respiratory effort; no respiratory distress Auscultation: + rhonchi and + wheezes Cardiovascular RRR, no murmur, no edema Gastrointestinal (Abdomen) normal bowel sounds, soft, nontender, no hepatosplenomegaly Skin no rashes, warm and dry Psychiatric A+Ox3, euthymic affect Discharge Data Consultations 06/06/20 19:33 ED Decision to Admit Stat Hospital Course (1) Pneumonia: Mr. 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 [facility] pneumonia Chest x-ray was performed on admission which showed ill-defined asymmetric left lung base opacities may reflect summation density, atelectasis or developing pneumonitis. Due to respiratory symptoms, patient was tested for COVID and was found to be negative in ED. WBC count on admission was 11.85 but trended down throughout his 2-day stay. Procalcitonin was found to be 0.32 on admission and culture showed no growth over 24 hours. He remained afebrile throughout his hospital course. He was initially started on vancomycin and piperacillin- sulbactam due to his immunocompromised status but due to his non-toxic clinical picture was narrowed to azithromycin and amoxicillin-clavulanate and went home on this PO regimen; he has 4 days of this course remaining on day of discharge. On day of discharge, clinical exam was most notable for tightness/pressure in the chest for which ibuprofen was recommended. EKG and echocardiogram were performed to rule out cardiac etiology, please see below. Panhypopituitarism TSH<0.005, free T4 WNL 0.91 on admission. Patient was given IV hydrocortisone 100 mg in the ED for stress dosing. For the next 1.5 days, he was given hydrocortisone 100 mg q8h. He was advised to double his home dose of hydrocortisone from 20 mg to 40 mg for the 2 days following discharge given concern for bradycardia (see below). After this time, he should resume his typical home dose of 20 mg QAM as well as desmopressin 0.1 mg and levothyroxine 112 mcg. Bradycardia On day 1 of hospitalization, patient was found to have persistent bradycardia in the 40-50s despite HRs in the 70-80s for the previous 24 hours. He did not endorse orthostasis, lightheadedness, fatigue, or shortness of breath. Although, he did given a vague description of chest discomfort for a few days which he attributed to the acute illness. He stated that he was compliant with home medications for panhypopituitarism, but did not increase doses to account for acute illness. Additionally, the patient provided remote history of pericardial effusion 20 years ago. Troponin was negative x1 on admission and EKG did not show ischemic changes. Additionally, a Lyme titer was negative. Bradycardia was determined to be largely a benign condition and likely consistent with his standard rate; however, patient was a bit anxious about this. If bradycardia pe rsists, it would be reasonable to follow up with a 30-day event monitor. EKG showed low voltage and thus an echocardiogram was performed. Echocardiogram showed mild aortic regurgitation. Patient should have follow-up echo in 6 months to determine if this is a progressive condition. Discharge Plan Discharge Items Patient Disposition: Home - Self-Care Reason For Visit: PNA Discharge Diagnosis: pneumonia Condition on Discharge: Good Activity: Resume your previous activity Non-emergency contact: Primary Care Provider Call non-emergency contact if: you have any medication questions and your symptoms worsen Follow-up/Referrals: Tanya Jose DO [Primary Care Provider] - 06/15/20 10:45 am Diet: Regular Addtl Attending Provider Instructions: You had around 2 weeks of dry cough, chest congestion and were seen at an outside hospital ([facility]) and had finished a 5 day course of abx. You visited our hospital after worsening of shortness of breath and cough. At the hospital, the chest xray showed a tiny pneumonia on your left lower lung, so we prescribed IV antibiotics. We are discharging you on 4 days of augmentin and azithromycin. You have history of pituitary surgery and are on 3 regular medications, steroids, testosterone, and desmopressin. We gave you a 1.5 day course of higher dose of steroids to account for your body normally releasing more during times of stress. We are discharging you on your home regimen of steroids, but recommend taking an extra tab (20mg) for the next 2 days to account for illness. Regarding the chest discomfort, we recommend as needed over the counter ibuprofen (follow instructions on box to not over use). Yesterday evening, we noticed that your heart rate was low in the 40s. We checked an ekg and echocardiogram (heart ultrasound). There was no fluid around your heart and the ekg did not suggest heart muscle damage. We will provide a note that suggests return to work on 06/09/20 Follow up: Please make an appointment with your primary care provider, Dr. Tanya Jose, [facility] Continue routine follow up with your existing physical trainer. Return precautions: If you develop any new or worsening symptoms, including fever, chills, dizziness, chest pain, shortness of breath, bloody urine or bloody stool, or other new or concerning symptoms, please call the your ED or 911 and seek care if you are concerned. Call your PCP for less urgent concerns. Pending Studies at Discharge: No Stand-Alone Forms: My [facility], Work/School Release (Inpt), Smoking Cessation Medications and DC Order Prescriptions: New azithromycin 250 mg Tablet 250 mg PO HS 4 Days Qty: 4 RF: 0 Caltrate 600-D Plus Minerals 600 mg calcium- 800 unit-50 mg Tablet 1 tab PO BID Qty: 14 RF: 0 amoxicillin-pot clavulanate [Augmentin] 875-125 mg Tablet 1 tab PO BIDM 4 Days Qty: 8 RF: 0 Continued testosterone cypionate 100 mg/mL oil 100 mg IM WK RF: 0 hydrocortisone 20 mg tablet 20 mg PO QAM RF: 0 levothyroxine [Euthyrox] 112 mcg tablet 112 mcg PO QAM RF: 0 desmopressin 0.1 mg tablet 0.1 mg PO HS RF: 0 Discharge Orders: Discharge Order (Routine); Ordered 06/08/20 Ordered By: Hernandez Hernandez/Other Patient Handouts: Preventing Pneumonia Admission Data Admit Date/Time: 06/06/20 22:33 Attending Provider: Ashok Patel Admit Provider: Cuco Silva Primary Care Provider: Tanya Jose Other Providers: Stevie Hernandez Other Interventions: Discharge Summary Assessment (RN) Last Done: 06/08/20 13:09 DC Date/Time DO NOT enter until pt leaves facility: 06/08/20 13:43 Supervising Attestation I personally examined the patient and verified all sotelo points of history and exam, discussed case, and agree with decision making with Christa MS3. feeling better and would like to go home. discussed bradycardia - totally asymptomatic. seems to have been bradycardic in a hospitalization once before, otherwise doesn't recall sx. vitals noted nad heent nc at mmm breathing unlabored no accessory muscles good effort skin no rashes no pallor or icterus. CAP - improving, stable for home. finish abx w augmentin and zithromax bradycardia - suspect baseline given no worrisome findings on EKG or echo, and given no sx. discussed extensively, offered holter to follow as outpt - but after discussions he declined as he has a better understanding. panhypopituitarism - as above/as per dc instructions, continue baseline treatment overall (sl taper down from stress dose steroids to regular daily dose) otherwise as above, stable for home
--- NOTE | 2020-06-08 19:09 | Billing Data ---
Date of Service June 08, 2020 Coding Level of Care Code D/C Day Management <30 mins
--- NOTE | 2020-06-08 19:09 | Billing Data ---
Date of Service June 08, 2020 Coding Level of Care Code 38516 OBS Care - Discharge Comment 217, NOT admit discharge
== END 2020-06-08 13:43 | disposition home or self-care (01) ==
LOC: 2W 16:45 → ED 16:45 → SUATTDRO 22:33 → 2W 23:14 → 3N 06-07 18:41

== ENCOUNTER 2020-08-28 13:05 | Inpatient (IN) ==
[2020-08-28] MEDS ORDERED: HYDROCORTISONE SOD SUCCINATE 100 MG/2 ML VIAL IV STA (13:28)
[2020-08-28] MEDS ORDERED: HYDROCORTISONE SOD SUCCINATE 100 MG/2 ML VIAL ONE (13:29)
[2020-08-28] MEDS ORDERED: SODIUM CHLORIDE 0.9% 1000ML 1,000 ML IV SCH ×2 (13:30→18:13)
[2020-08-28 13:45] LABS: Basophils # (auto) 0.07 K/uL (0-0.2); Basophils % (auto) 1.3 %; Eosinophils # (auto) 0.35 K/uL (0-0.5); Eosinophils % (auto) 6.4 %; Hematocrit (blood only) 38.2 % (42-52); Hemoglobin 13.3 g/dL (14.0-18.0); Mean Corpuscular Hemoglobin 27.8 pg (25-34); Mean Corpuscular Hgb Conc 34.8 g/dL (32-36); Mean Corpuscular Volume 79.9 fL (80-100); Mean Platelet Volume 11.4 fL (7.4-10.4); Monocytes # (auto) 0.44 K/uL (0.11-0.59); Monocytes % (auto) 8.1 %; Neutrophils % (auto) 40.2 %; Platelet Count 168 K/uL (130-400); RDW Standard Deviation 43.6 fL (36.4-46.3); Red Blood Count 4.78 M/uL (4.7-6.1); White Blood Count 5.46 K/uL (4.8-10.8)
[2020-08-28 13:54] LABS: D Dimer 480 ug/L FEU (0-500)
[2020-08-28 14:01] LABS: Alanine Aminotransferase 21 U/L (12-78); Albumin Level 3.8 gm/dl (3.4-5.0); Aspartate Aminotransferase 23 U/L (15-37); BUN Creatinine Ratio 7.8 (10-20); Blood Urea Nitrogen 9 mg/dl (7-18); Calcium 8.5 mg/dl (8.5-10.1); Carbon Dioxide 30 mmol/L (21-32); Chloride 104 mmol/L (98-107); Creatinine Clr Calc Pharmacy 99.1 ml/min; Est GFR (African American) 89.2; Glucose 79 mg/dl (70-99); Magnesium 2.1 mg/dl (1.8-2.4); Potassium 3.1 mmol/L (3.5-5.1); Sodium 139 mmol/L (136-145)
[2020-08-28] MEDS ORDERED: POTASSIUM CHLORIDE CRTAB 20 MEQ TABCR PO STA (14:03)
[2020-08-28] MEDS ORDERED: SODIUM CHLORIDE 0.9% 1000ML 1,000 ML IV ONE (14:11)
[2020-08-28 14:12] LABS: Albumin Globulin Ratio 1.1 (0.9-2); Alkaline Phosphatase 55 U/L (45-117); Bilirubin,Total 0.5 mg/dl (0.2-1); Creatine Kinase 86 U/L (39-308); Globulin 3.5 gm/dl (2.5-4.0); Thyroid Stimulating Hormone < 0.005 uIu/ml (0.300-4.500); Total Protein 7.3 gm/dl (6.4-8.2); Troponin I < 0.015 ng/ml (0-0.045)
[2020-08-28 14:25] LABS: T4 Free Thyroxine 0.63 ng/dl (0.8-1.6)
--- NOTE | 2020-08-28 15:44 | History & Physical Report ---
Date of Service August 28, 2020 Assessment & Plan (1) Panhypopituitarism: Patient suffers from panhypopituitary is him for pituitary resection. He is on repletion of hydrocortisone and desmopressin Synthroid and testosterone. He denies any omission of medications. He did have a preceding illness a few weeks ago which was treated appropriately as pneumonia. He is Covid negative in the ER. Otherwise he has no significant objective clinical abnormalities other than mild hypokalemia and mild on the repletion of his thyroid. In the emergency department he was given hydrocortisone 150 hydrated with fluid with improvement of low blood pressure patient states he just feels cold and li ttle sleepy get for observation. Given additional dose of his oral Synthroid today. Return to his typical Cortef dosing Synthroid dosing desmopressin dosing. Hopeful to add a pretreatment random cortisol if able we will check repeat chest x-ray urine analysis and urine tox screen History of Present Illness Primary Care Provider: Tanya Jose DO 44-year-old male whose history of panhypopituitarism for pituitary resection who he is here with lethargy and weakness. Poorly the patient was treated for pneumonia few weeks ago for 2 weeks with antibiotics and then went on a hunting trip to [place] returning home. Patient states that he did fine in [place] and did not skip any medications. Patient presents from work today with weakness. He says he does not want to sleep but has feels more comfortable keeping his eyes closed. Work-up in the emergency department did not reveal anything sign ificantly abnormal he is mildly hypokalemic. He does have mild low repletion of his T4. (He typically does not make TSH) he notices hydrocortisone dose by heart taking 20 in the morning and 5 at night states he did miss this nor his Synthroid. He takes desmopressin additionally. In the emergency room his remainder his laboratories are unremarkable awaiting a urinalysis and a tox screen as well as an EKG and a chest x-ray. Allergies Allergy/AdvReac Type Severity Reaction Status Date / Time No Known Allergies Allergy Verified 08/28/20 14:50 Home Medications Home Medications Medication Instructions Recorded Confirmed Type desmopressin 0.1 mg PO HS 06/06/20 08/28/20 History hydrocortisone 20 mg PO QAM 06/06/20 08/28/20 History levothyroxine [Euthyrox] 112 mcg PO QAM 06/06/20 08/28/20 History testosterone cypionate 100 mg IM WK 06/06/20 08/28/20 History [id number] 1 tab PO BID #14 tab 06/08/20 08/28/20 Rx [Caltrate 600-D Plus Minerals] Past Med/Surg History Medical History (Updated 06/07/20 @ 19:46 by Hernandez Stokes MD) Chronic adrenal insufficiency History of pituitary tumor Panhypopituitarism Social History Smoking Status: Former smoker Hx Alcohol Use: Yes Hx Substance Use: Yes Last Used Substance Other:: years Preferred Language: Ethiopian Communication Ability: Effective Bag Liner Required: No Beliefs That Will Affect Care: None Current Living Situation: Family Feels Safe at Home: Yes Assistive Devices: None Review of Systems Review of Systems: Moderate distress and fatigue no headache, blurry or double vision no speech or swallowing issues no chest pain, pressure or palpitations no shortness of breath, cough or wheezes no abdominal pain, nausea or vomiting, diarrhea or constipation no dysuria, hematuria or frequency no focal joint pain or swelling no back pain, CVA tenderness or radicular pain no bruising, bleeding or rashes no focal signs of weakness or numbness or altered sensation no complaints of anxiety or depression. Physical Exam Physical Exam: The patient appeared well nourished and normally developed. Vital signs as documented. Head exam is normocephalic atraumatic no scleral icterus Neck is without JVD, thyromegaly, or carotid bruits. Lungs are clear to auscultation, no focal loss of breath sounds Cardiac exam, Rhythm is regular.. No murmurs, rubs or gallops. Abdominal exam reveals normal bowel sounds, soft non tender, no masses Extremities are nonedematous and both pedal pulses are present Neurologic exam is alert and oriented, no focal loss of strength or sensation Skin is without bruises or rashes Psychologically is without concerns for anxiety or depression. Results & Data Results & Data ([facility]) Vital Signs (Past 12 Hours) Vital Signs Pulse Pulse Resp BP BP Pulse Ox 08/28/20 15:30 52 L 12 111/63 100 08/28/20 15:00 58 L 18 115/66 100 08/28/20 14:52 61 14 100/58 L 100 08/28/20 14:34 58 L 12 112/64 100 08/28/20 14:18 76 16 111/65 100 08/28/20 14:01 62 22 103/61 100 08/28/20 13:38 100 08/28/20 13:35 56 L 16 92/56 L 100 08/28/20 13:25 56 L 12 73/40 L 94 PG Care Time/CCT Total # of Minutes Spent Total Time Spent with Patient: Total time spent is greater than 50% in coordination of care (as documented) at patient's floor/unit and/or counseling patient: Coding Level of Care Code 76695 OBS Care - Level 2 Diagnoses Panhypopituitarism E23.0
--- NOTE | 2020-08-28 16:21 | Emergency Department Note ---
History of Present Illness General Chief complaint: Syncope (Near Syncope) Stated complaint: PASSED OUT AT WORK Time Seen by Provider: 08/28/20 13:28 Source: patient and friends (Coworker) Mode of arrival: ambulatory Limitations: patient cooperation and clinical acuity (Hypotension/near syncopal) History of Present Illness Provider complaint: Syncopal episode This patient is a 44-year-old male who presents to the emergency department with complaints of a syncopal episode while at work today. 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 He also admits to a vomiting illness within the last month. He states several months ago he was treated for pneumonia but through this he did not take stress dose steroids. 2 weeks ago the patient drove with his friends to [place] to go hunting. He states he was a bit short of breath wh ile walking through the mountains but he believes this is secondary to the elevation. He states he was compliant taking his hydrocortisone and thyroid medication during this trip. He works as a cook at a local restaurant/bar. He denies any known Covid exposures. Home Medications Home Medications Medication Instructions Recorded Confirmed Type desmopressin 0.1 mg PO HS 06/06/20 08/28/20 History hydrocortisone 20 mg PO QAM 06/06/20 08/28/20 History testosterone cypionate 100 mg IM WK 06/06/20 08/28/20 History Caltrate 600-D Plus Minerals 1 tab PO BID #14 tab 06/08/20 08/28/20 Rx levothyroxine [Synthroid] 125 mcg PO DAILYBB 30 Days #30 tab 08/31/20 Rx Allergies Allergy/AdvReac Type Severity Reaction Status Date / Time No Known Allergies Allergy Verified 08/28/20 14:50 Past Med/Surg History Medical History (Updated 08/31/20 @ 20:47 by Izabela Iverson MD) Chronic adrenal insufficiency History of pituitary tumor Panhypopituitarism Social History Smoking Status: Former smoker Hx Alcohol Use: Yes Alcohol type: beer Hx Substance Use: Yes Last Used Substance Other:: "years ago" Preferred Language: Indonesian Communication Ability: Effective Test Data Developer Required: No Beliefs That Will Affect Care: Buddhism Current Living Situation: Family Feels Safe at Home: Yes Assistive Devices: None Review of Systems See HPI for pertinent positives & negatives. and A total of 10 systems reviewed and were otherwise negative Physical Exam Vital Signs Vital Signs - 24 hr 08/28/20 13:25 08/28/20 13:35 08/28/20 13:38 Pulse Rate 56 L Pulse Rate [Right Finger] 56 L Respiratory Rate 12 16 Respiratory Effort / Characteristics Non-Labored Respiratory Depth Normal Blood Pressure 73/40 L Blood Pressure [Right Arm] 92/56 L Blood Pressure Mean 51 Blood Pressure Mean [Right Arm] 68 Pulse Oximetry 94 100 100 Oxygen Delivery Method Room Air Room Air Room Air Sepsis Recent Fever Within 48 Hours No Sepsis New/Unexplained Change in Mental Status N/A Sepsis Action Taken by Nursing No Action Required 08/28/20 14:01 08/28/20 14:18 08/28/20 14:34 Pulse Rate Pulse Rate [Right Finger] 62 76 58 L Respiratory Rate 22 16 12 Respiratory Effort / Characteristics Non-Labored Respiratory Depth Normal Blood Pressure Blood Pressure [Right Arm] 103/61 111/65 112/64 Blood Pressure Mean Blood Pressure Mean [Right Arm] 75 80 80 Pulse Oximetry 100 100 100 Oxygen Delivery Method Room Air Room Air Room Air Sepsis Recent Fever Within 48 Hours Sepsis New/Unexplained Change in Mental Status Sepsis Action Taken by Nursing 08/28/20 14:52 08/28/20 15:00 08/28/20 15:30 Pulse Rate 61 58 L 52 L Pulse Rate [Right Finger] Respiratory Rate 14 18 12 Respiratory Effort / Characteristics Respiratory Depth Blood Pressure 100/58 L 115/66 111/63 Blood Pressure [Right Arm] Blood Pressure Mean 81 82 77 Blood Pressure Mean [Right Arm] Pulse Oximetry 100 100 100 Oxygen Delivery Method Room Air Room Air Sepsis Recent Fever Within 48 Hours Sepsis New/Unexplained Change in Mental Status Sepsis Action Taken by Nursing 08/28/20 16:00 Pulse Rate 50 L Pulse Rate [Right Finger] Respiratory Rate 15 Respiratory Effort / Characteristics Respiratory Depth Blood Pressure 114/53 L Blood Pressure [Right Arm] Blood Pressure Mean 68 Blood Pressure Mean [Right Arm] Pulse Oximetry 100 Oxygen Delivery Method Room Air Sepsis Recent Fever Within 48 Hours Sepsis New/Unexplained Change in Mental Status Sepsis Action Taken by Nursing Vital signs reviewed. Noted to be bradycardic and hypotensive General: Chronically ill-appearing 44-year-old male, in no distress HEENT: No scleral icterus, PERRLA, neck supple. Dry mucous membranes. Cardiovascular: Bradycardic rate and regular rhythm, no extra sounds. Pulmonary: Clear to auscultation bilaterally, normal work of breathing. Abdomen: Soft, nontender, nondistended, positive bowel sounds. Musculoskeletal: Atraumatic, no peripheral edema. Neurologic: Patient awake alert and oriented x 3, falls asleep quickly but does answer questions with some repetitive prompting. Skin: Warm, dry, no rash Course Administered Medications Discontinued Medications Acetaminophen (Acetaminophen 325 Mg Tab) 650 mg PO Q4H PRN PRN Reason: Pain or Fever Stop: 09/27/20 18:12 Last Admin: 08/29/20 19:38 Dose: 650 mg Documented by: [id number] Desmopressin Acetate (Desmopressin Acetate 0.1 Mg Tab) 0.1 mg PO HS [facility] Stop: 09/27/20 20:59 Last Admin: 08/30/20 20:04 Dose: 0.1 mg Documented by: [id number] Admin: 08/29/20 20:39 Dose: 0.1 mg Documented by: [id number] Admin: 08/28/20 20:40 Dose: 0.1 mg Documented by: [id number] Hydrocortisone (Hydrocortisone 10 Mg Tab) 20 mg PO QAM [facility] Stop: 09/28/20 08:59 Last Admin: 08/31/20 09:06 Dose: 20 mg Documented by: [id number] Admin: 08/30/20 08:28 Dose: 20 mg Documented by: [id number] Admin: 08/29/20 08:36 Dose: 20 mg Documented by: [id number] Hydrocortisone Sodium Succinate (Hydrocortisone Sod Succinate 100 Mg/2 Ml Vial) 100 mg IV NOW STA Stop: 08/28/20 13:29 Last Admin: 08/28/20 13:33 Dose: Not Given Documented by: [id number] Hydrocortisone Sodium Succinate (Hydrocortisone Sod Succinate 100 Mg/2 Ml Vial) Confirm Administered Dose 100 mg .ROUTE .STK-MED ONE Stop: 08/28/20 13:30 Last Admin: 08/28/20 13:32 Dose: 100 mg Documented by: [id number] Sodium Chloride (Nss 1000ml) 1,000 mls @ 999 mls/hr IV .Q1H1M JUDITH Stop: 08/28/20 14:30 Last Infusion: 08/28/20 14:46 Dose: 0 mls/hr Documented by: [id number] Admin: 08/28/20 13:32 Dose: 999 mls/hr Documented by: [id number] Sodium Chloride (Nss 1000ml) 1,000 mls @ 999 mls/hr IV .Q1H1M ONE Stop: 08/28/20 15:11 Last Infusion: 08/28/20 15:47 Dose: 0 mls/hr Documented by: [id number] Admin: 08/28/20 14:46 Dose: 999 mls/hr Documented by: [id number] Sodium Chloride (Nss 1000ml) 1,000 mls @ 125 mls/hr IV .Q8H JUDITH Stop: 08/29/20 02:12 Last Infusion: 08/29/20 03:13 Dose: 0 mls/hr Documented by: [id number] Admin: 08/28/20 18:27 Dose: 125 mls/hr Documented by: [id number] Sodium Chloride (Nss 1000ml) 1,000 mls @ 125 mls/hr IV .Q8H JUDITH Stop: 09/28/20 17:59 Last Infusion: 08/30/20 17:25 Dose: 0 mls/hr Documented by: [id number] Admin: 08/30/20 13:17 Dose: 125 mls/hr Documented by: [id number] Infusion: 08/30/20 13:17 Dose: 125 mls/hr Documented by: [id number] Admin: 08/30/20 05:37 Dose: 125 mls/hr Documented by: [id number] Infusion: 08/30/20 02:15 Dose: 125 mls/hr Documented by: [id number] Admin: 08/30/20 02:00 Dose: Not Given Documented by: [id number] Admin: 08/29/20 18:15 Dose: 125 mls/hr Documented by: [id number] Levothyroxine Sodium (Levothyroxine Sodium 112 Mcg Tablet) 112 mcg PO DAILYBB [facility] Stop: 09/27/20 18:12 Last Admin: 08/29/20 06:05 Dose: 112 mcg Documented by: [id number] Admin: 08/28/20 20:40 Dose: 112 mcg Documented by: [id number] Levothyroxine Sodium (Levothyroxine Sodium 125 Mcg Tablet) 125 mcg PO DAILYBB JUDITH Stop: 09/29/20 06:29 Last Admin: 08/31/20 05:59 Dose: 125 mcg Documented by: [id number] Admin: 08/30/20 05:38 Dose: 125 mcg Documented by: [id number] Multivitamins/Minerals (Calcium 600mg + Vit D 400 Iu Tab) 1 tab PO BID JUDITH Stop: 09/27/20 20:59 Last Admin: 08/31/20 09:06 Dose: 1 tab Documented by: [id number] Admin: 08/30/20 20:04 Dose: 1 tab Documented by: [id number] Admin: 08/30/20 08:28 Dose: 1 tab Documented by: [id number] Admin: 08/29/20 20:40 Dose: 1 tab Documented by: [id number] Admin: 08/29/20 08:36 Dose: 1 tab Documented by: [id number] Admin: 08/28/20 20:40 Dose: 1 tab Documented by: [id number] Potassium Chloride (Potassium Chloride 20 Meq Tabcr) 40 meq PO NOW STA Stop: 08/28/20 14:04 Last Admin: 08/28/20 14:08 Dose: 40 meq Documented by: [id number] Potassium Chloride (Potassium Chloride 20 Meq Tabcr) 20 meq PO BID JUDITH Stop: 08/29/20 21:01 Last Admin: 08/29/20 20:39 Dose: 20 meq Documented by: [id number] Admin: 08/29/20 08:37 Dose: 20 meq Documented by: [id number] Admin: 08/28/20 20:40 Dose: 20 meq Documented by: [id number] Critical Care Time Critical Care Time: Yes Total Critical Care Time: 32 I have personally spent greater than 32 minutes of critical care time in the di rect management of this patient. This includes bedside care, interpretation of diagnostic studies, and testing, discussion with consultants, patient, and family members, and other required patient management activities. This 32 minutes is in excess of all separately billable procedures. Medical Decision Making Differential Diagnosis Differential diagnosis: Etiologies such as steroid deficiency, dehydration, sepsis, UTI, pneumonia, bacteremia, metabolic process, electrolyte abnormalities, cardiac sources, intracerebral event, intra-abdominal process, toxicological process, neurologic process, as well as others were entertained. Medical Records Attestation: I reviewed the patient's medical records. Home Medications Current Medication List: was personally reviewed by me Laboratory Data Attestation: I reviewed the patient's lab results. Result diagrams: 08/31/20 07:01 08/31/20 07:01 Lab Results 08/28/20 08/28/20 08/28/20 Range/Units 13:30 13:30 13:30 WBC 5.46 (4.8-10.8) K/uL RBC 4.78 (4.7-6.1) M/uL Hgb 13.3 L (14.0-18.0) g/dL Hct 38.2 L (42-52) % MCV 79.9 L (80-100) fL MCH 27.8 (25-34) pg MCHC 34.8 (32-36) g/dL RDW Std Deviation 43.6 (36.4-46.3) fL RDW Coeff of Gideon 15.0 H (11.5-14.5) % Plt Count 168 (130-400) K/uL MPV 11.4 H (7.4-10.4) fL Immature Gran % (Auto) 0.0 % Neut % (Auto) 40.2 % Lymph % (Auto) 44.0 % Ross % (Auto) 8.1 % Eos % (Auto) 6.4 % Baso % (Auto) 1.3 % Neut # (Auto) 2.20 (1.4-6.5) K/uL Lymph # (Auto) 2.40 (1.2-3.4) K/uL Ross # (Auto) 0.44 (0.11-0.59) K/uL Eos # (Auto) 0.35 (0-0.5) K/uL Baso # (Auto) 0.07 (0-0.2) K/uL Immature Gran # (Auto) 0.00 (0.00-0.02) K/uL D-Dimer 480 (0-500) ug/L FEU Sodium 139 (136-145) mmol/L Potassium 3.1 L (3.5-5.1) mmol/L Chloride 104 (98-107) mmol/L Carbon Dioxide 30 (21-32) mmol/L Anion Gap 5.0 (3-11) BUN 9 (7-18) mg/dl Creatinine 1.15 (0.6-1.4) mg/dl Est Cr Clr Drug Dosing 99.1 ml/min Est GFR ( Amer) 89.2 Est GFR (Non-Af Amer) 77.0 BUN/Creatinine Ratio 7.8 L (10-20) Glucose 79 (70-99) mg/dl Calcium 8.5 (8.5-10.1) mg/dl Magnesium 2.1 (1.8-2.4) mg/dl Iron (35-175) mcg/dl TIBC (250-450) mcg/dl Ferritin (8-388) ng/ml Total Bilirubin 0.5 (0.2-1) mg/dl AST 23 (15-37) U/L ALT 21 (12-78) U/L Alkaline Phosphatase 55 (45-117) U/L Total Creatine Kinase 86 (39-308) U/L Troponin I < 0.015 (0-0.045) ng/ml Total Protein 7.3 (6.4-8.2) gm/dl Albumin 3.8 (3.4-5.0) gm/dl Globulin 3.5 (2.5-4.0) gm/dl Albumin/Globulin Ratio 1.1 (0.9-2) TSH < 0.005 L (0.300-4.500) uIu/ml Free T4 0.63 L (0.8-1.6) ng/dl Random Cortisol mcg/dl Urine Color Urine Appearance (Clear) Urine pH (4.5-7.5) Ur Specific Fertile (1.000-1.030) Urine Protein (Negative) Urine Glucose (UA) (Negative) Urine Ketones (Negative) Urine Blood (Negative) Urine Nitrite (Negative) Urine Bilirubin (Negative) Urine Urobilinogen (Negative) Ur Leukocyte Esterase (Negative) Urine Opiates Screen (Neg) Ur Methadone, Qual (Neg) Urine Barbiturates (Neg) Ur Phencyclidine (PCP) (Neg) U Amphetamin/Meth Scrn (Neg) MDMA (Ecstasy) Screen (Neg) U Benzodiazepines Scrn (Neg) Ur Cocaine Metabolite (Neg) U Marijuana (THC) Screen (Neg) U Marijuana THC Carboxy (<5) ng/mL Drug Screen Comment Ethyl Alcohol mg/dL (0-3) mg/dl COVID-19 Eval Order COVID-19 PCR (Negative) 08/28/20 08/28/20 08/28/20 Range/Units 13:30 13:51 14:00 WBC (4.8-10.8) K/uL RBC (4.7-6.1) M/uL Hgb (14.0-18.0) g/dL Hct (42-52) % MCV (80-100) fL MCH (25-34) pg MCHC (32-36) g/dL RDW Std Deviation (36.4-46.3) fL RDW Coeff of Gideon (11.5-14.5) % Plt Count (130-400) K/uL MPV (7.4-10.4) fL Immature Gran % (Auto) % Neut % (Auto) % Lymph % (Auto) % Ross % (Auto) % Eos % (Auto) % Baso % (Auto) % Neut # (Auto) (1.4-6.5) K/uL Lymph # (Auto) (1.2-3.4) K/uL Ross # (Auto) (0.11-0.59) K/uL Eos # (Auto) (0-0.5) K/uL Baso # (Auto) (0-0.2) K/uL Immature Gran # (Auto) (0.00-0.02) K/uL D-Dimer (0-500) ug/L FEU Sodium (136-145) mmol/L Potassium (3.5-5.1) mmol/L Chloride (98-107) mmol/L Carbon Dioxide (21-32) mmol/L Anion Gap (3-11) BUN (7-18) mg/dl Creatinine (0.6-1.4) mg/dl Est Cr Clr Drug Dosing ml/min Est GFR ( Amer) Est GFR (Non-Af Amer) BUN/Creatinine Ratio (10-20) Glucose (70-99) mg/dl Calcium (8.5-10.1) mg/dl Magnesium (1.8-2.4) mg/dl Iron (35-175) mcg/dl TIBC (250-450) mcg/dl Ferritin (8-388) ng/ml Total Bilirubin (0.2-1) mg/dl AST (15-37) U/L ALT (12-78) U/L Alkaline Phosphatase (45-117) U/L Total Creatine Kinase (39-308) U/L Troponin I (0-0.045) ng/ml Total Protein (6.4-8.2) gm/dl Albumin (3.4-5.0) gm/dl Globulin (2.5-4.0) gm/dl Albumin/Globulin Ratio (0.9-2) TSH (0.300-4.500) uIu/ml Free T4 (0.8-1.6) ng/dl Random Cortisol < 0.50 mcg/dl Urine Color Urine Appearance (Clear) Urine pH (4.5-7.5) Ur Specific Fertile (1.000-1.030) Urine Protein (Negative) Urine Glucose (UA) (Negative) Urine Ketones (Negative) Urine Blood (Negative) Urine Nitrite (Negative) Urine Bilirubin (Negative) Urine Urobilinogen (Negative) Ur Leukocyte Esterase (Negative) Urine Opiates Screen (Neg) Ur Methadone, Qual (Neg) Urine Barbiturates (Neg) Ur Phencyclidine (PCP) (Neg) U Amphetamin/Meth Scrn (Neg) MDMA (Ecstasy) Screen (Neg) U Benzodiazepines Scrn (Neg) Ur Cocaine Metabolite (Neg) U Marijuana (THC) Screen (Neg) U Marijuana THC Carboxy (<5) ng/mL Drug Screen Comment Ethyl Alcohol mg/dL < 3.0 (0-3) mg/dl COVID-19 Eval Order Covid19 Done at [facility] COVID-19 PCR (Negative) 08/28/20 08/28/20 08/28/20 Range/Units 14:00 16:30 16:30 WBC (4.8-10.8) K/uL RBC (4.7-6.1) M/uL Hgb (14.0-18.0) g/dL Hct (42-52) % MCV (80-100) fL MCH (25-34) pg MCHC (32-36) g/dL RDW Std Deviation (36.4-46.3) fL RDW Coeff of Gideon (11.5-14.5) % Plt Count (130-400) K/uL MPV (7.4-10.4) fL Immature Gran % (Auto) % Neut % (Auto) % Lymph % (Auto) % Ross % (Auto) % Eos % (Auto) % Baso % (Auto) % Neut # (Auto) (1.4-6.5) K/uL Lymph # (Auto) (1.2-3.4) K/uL Ross # (Auto) (0.11-0.59) K/uL Eos # (Auto) (0-0.5) K/uL Baso # (Auto) (0-0.2) K/uL Immature Gran # (Auto) (0.00-0.02) K/uL D-Dimer (0-500) ug/L FEU Sodium (136-145) mmol/L Potassium (3.5-5.1) mmol/L Chloride (98-107) mmol/L Carbon Dioxide (21-32) mmol/L Anion Gap (3-11) BUN (7-18) mg/dl Creatinine (0.6-1.4) mg/dl Est Cr Clr Drug Dosing ml/min Est GFR ( Amer) Est GFR (Non-Af Amer) BUN/Creatinine Ratio (10-20) Glucose (70-99) mg/dl Calcium (8.5-10.1) mg/dl Magnesium (1.8-2.4) mg/dl Iron (35-175) mcg/dl TIBC (250-450) mcg/dl Ferritin (8-388) ng/ml Total Bilirubin (0.2-1) mg/dl AST (15-37) U/L ALT (12-78) U/L Alkaline Phosphatase (45-117) U/L Total Creatine Kinase (39-308) U/L Troponin I (0-0.045) ng/ml Total Protein (6.4-8.2) gm/dl Albumin (3.4-5.0) gm/dl Globulin (2.5-4.0) gm/dl Albumin/Globulin Ratio (0.9-2) TSH (0.300-4.500) uIu/ml Free T4 (0.8-1.6) ng/dl Random Cortisol mcg/dl Urine Color Yellow Urine Appearance Clear (Clear) Urine pH 5.5 (4.5-7.5) Ur Specific Fertile 1.007 (1.000-1.030) Urine Protein Negative (Negative) Urine Glucose (UA) Negative (Negative) Urine Ketones Negative (Negative) Urine Blood Negative (Negative) Urine Nitrite Negative (Negative) Urine Bilirubin Negative (Negative) Urine Urobilinogen Negative (Negative) Ur Leukocyte Esterase Negative (Negative) Urine Opiates Screen Neg (Neg) Ur Methadone, Qual Neg (Neg) Urine Barbiturates Neg (Neg) Ur Phencyclidine (PCP) Neg (Neg) U Amphetamin/Meth Scrn Neg (Neg) MDMA (Ecstasy) Screen Neg (Neg) U Benzodiazepines Scrn Neg (Neg) Ur Cocaine Metabolite Neg (Neg) U Marijuana (THC) Screen Pos H (Neg) U Marijuana THC Carboxy (<5) ng/mL Drug Screen Comment Ethyl Alcohol mg/dL (0-3) mg/dl COVID-19 Eval Order COVID-19 PCR NEGATIVE (Negative) 08/28/20 08/29/20 08/29/20 Range/Units 16:30 06:18 06:18 WBC 4.71 L (4.8-10.8) K/uL RBC 4.27 L (4.7-6.1) M/uL Hgb 11.7 L (14.0-18.0) g/dL Hct 34.0 L (42-52) % MCV 79.6 L (80-100) fL MCH 27.4 (25-34) pg MCHC 34.4 (32-36) g/dL RDW Std Deviation 44.0 (36.4-46.3) fL RDW Coeff of Gideon 15.2 H (11.5-14.5) % Plt Count 132 (130-400) K/uL MPV 11.1 H (7.4-10.4) fL Immature Gran % (Auto) % Neut % (Auto) % Lymph % (Auto) % Ross % (Auto) % Eos % (Auto) % Baso % (Auto) % Neut # (Auto) (1.4-6.5) K/uL Lymph # (Auto) (1.2-3.4) K/uL Ross # (Auto) (0.11-0.59) K/uL Eos # (Auto) (0-0.5) K/uL Baso # (Auto) (0-0.2) K/uL Immature Gran # (Auto) (0.00-0.02) K/uL D-Dimer (0-500) ug/L FEU Sodium 142 (136-145) mmol/L Potassium 4.1 D (3.5-5.1) mmol/L Chloride 113 H (98-107) mmol/L Carbon Dioxide 25 (21-32) mmol/L Anion Gap 4.0 (3-11) BUN 7 (7-18) mg/dl Creatinine 0.60 D (0.6-1.4) mg/dl Est Cr Clr Drug Dosing 180.1 ml/min Est GFR ( Amer) 141.7 Est GFR (Non-Af Amer) 122.3 BUN/Creatinine Ratio 12.4 (10-20) Glucose 85 (70-99) mg/dl Calcium 8.3 L (8.5-10.1) mg/dl Magnesium (1.8-2.4) mg/dl Iron (35-175) mcg/dl TIBC (250-450) mcg/dl Ferritin (8-388) ng/ml Total Bilirubin (0.2-1) mg/dl AST (15-37) U/L ALT (12-78) U/L Alkaline Phosphatase (45-117) U/L Total Creatine Kinase (39-308) U/L Troponin I (0-0.045) ng/ml Total Protein (6.4-8.2) gm/dl Albumin (3.4-5.0) gm/dl Globulin (2.5-4.0) gm/dl Albumin/Globulin Ratio (0.9-2) TSH (0.300-4.500) uIu/ml Free T4 (0.8-1.6) ng/dl Random Cortisol mcg/dl Urine Color Urine Appearance (Clear) Urine pH (4.5-7.5) Ur Specific Fertile (1.000-1.030) Urine Protein (Negative) Urine Glucose (UA) (Negative) Urine Ketones (Negative) Urine Blood (Negative) Urine Nitrite (Negative) Urine Bilirubin (Negative) Urine Urobilinogen (Negative) Ur Leukocyte Esterase (Negative) Urine Opiates Screen (Neg) Ur Methadone, Qual (Neg) Urine Barbiturates (Neg) Ur Phencyclidine (PCP) (Neg) U Amphetamin/Meth Scrn (Neg) MDMA (Ecstasy) Screen (Neg) U Benzodiazepines Scrn (Neg) Ur Cocaine Metabolite (Neg) U Marijuana (THC) Screen (Neg) U Marijuana THC Carboxy 272 H (<5) ng/mL Drug Screen Comment SEE NOTE Ethyl Alcohol mg/dL (0-3) mg/dl COVID-19 Eval Order COVID-19 PCR (Negative) 08/29/20 Range/Units 06:18 WBC (4.8-10.8) K/uL RBC (4.7-6.1) M/uL Hgb (14.0-18.0) g/dL Hct (42-52) % MCV (80-100) fL MCH (25-34) pg MCHC (32-36) g/dL RDW Std Deviation (36.4-46.3) fL RDW Coeff of Gideon (11.5-14.5) % Plt Count (130-400) K/uL MPV (7.4-10.4) fL Immature Gran % (Auto) % Neut % (Auto) % Lymph % (Auto) % Ross % (Auto) % Eos % (Auto) % Baso % (Auto) % Neut # (Auto) (1.4-6.5) K/uL Lymph # (Auto) (1.2-3.4) K/uL Ross # (Auto) (0.11-0.59) K/uL Eos # (Auto) (0-0.5) K/uL Baso # (Auto) (0-0.2) K/uL Immature Gran # (Auto) (0.00-0.02) K/uL D-Dimer (0-500) ug/L FEU Sodium (136-145) mmol/L Potassium (3.5-5.1) mmol/L Chloride (98-107) mmol/L Carbon Dioxide (21-32) mmol/L Anion Gap (3-11) BUN (7-18) mg/dl Creatinine (0.6-1.4) mg/dl Est Cr Clr Drug Dosing ml/min Est GFR ( Amer) Est GFR (Non-Af Amer) BUN/Creatinine Ratio (10-20) Glucose (70-99) mg/dl Calcium (8.5-10.1) mg/dl Magnesium (1.8-2.4) mg/dl Iron 56 (35-175) mcg/dl TIBC 190 L (250-450) mcg/dl Ferritin 122.1 (8-388) ng/ml Total Bilirubin (0.2-1) mg/dl AST (15-37) U/L ALT (12-78) U/L Alkaline Phosphatase (45-117) U/L Total Creatine Kinase (39-308) U/L Troponin I (0-0.045) ng/ml Total Protein (6.4-8.2) gm/dl Albumin (3.4-5.0) gm/dl Globulin (2.5-4.0) gm/dl Albumin/Globulin Ratio (0.9-2) TSH (0.300-4.500) uIu/ml Free T4 (0.8-1.6) ng/dl Random Cortisol mcg/dl Urine Color Urine Appearance (Clear) Urine pH (4.5-7.5) Ur Specific Fertile (1.000-1.030) Urine Protein (Negative) Urine Glucose (UA) (Negative) Urine Ketones (Negative) Urine Blood (Negative) Urine Nitrite (Negative) Urine Bilirubin (Negative) Urine Urobilinogen (Negative) Ur Leukocyte Esterase (Negative) Urine Opiates Screen (Neg) Ur Methadone, Qual (Neg) Urine Barbiturates (Neg) Ur Phencyclidine (PCP) (Neg) U Amphetamin/Meth Scrn (Neg) MDMA (Ecstasy) Screen (Neg) U Benzodiazepines Scrn (Neg) Ur Cocaine Metabolite (Neg) U Marijuana (THC) Screen (Neg) U Marijuana THC Carboxy (<5) ng/mL Drug Screen Comment Ethyl Alcohol mg/dL (0-3) mg/dl COVID-19 Eval Order COVID-19 PCR (Negative) Imaging Data Radiologist's Impression: XR chest 2V PA/lateral HISTORY: lethargy recent pneumonia COMPARISON: Chest 06/06/2020. FINDINGS: No pneumothorax. No pleural effusions. The heart is normal in size. No focal lung consolidations to suggest pneumonia. No evidence for pulmonary edema. Mild anterior wedging within the thoracic spine vertebral bodies. This is likely chronic. IMPRESSION: No acute process. ACT 112: Negative or not required by law. Electronically signed by: Minh Hinds M.D. 08/28/2020 5:29 PM Dictated: 08/28/201726 Transcribed: 08/28/201726 ECG Data Attestation: I personally reviewed and interpreted this ECG as follows: Indication: + syncope Rate (beats per minute): 56 Rhythm: + sinus bradycardia ECG Intervals/blocks: + Incomplete right bundle branch block and + Normal QT-c (432) ECG [place]: + Normal ECG ST segments: + Normal ST segments ECG Findings: no PACs and no PVCs Blood Pressure Blood Pressure Findings: Low blood pressure Blood Pressure Disposition: further management by hospitalist MDM Narrative This patient was evaluated and appeared to be in no significant distress. IV access was obtained and laboratory work was drawn. Patient is noted to be hypotensive. An order for cardiac monitoring was placed and the patient is found to be bradycardic at 55 bpm. An EKG was performed and is found to again be bradycardic at 56 bpm with an incomplete right bundle branch block. Chest x- ray was performed reveals no evidence of focal lung consolidation or failure. Patient did receive 2 L of IV normal saline solution and 100 mg of IV hydrocortisone with significant improvement in his blood pressure. He did return to normal fairly quickly. Potassium is noted to be 3.1. Patient was given 40 mEq of potassium by mouth. Given the above findings and unstable vital signs, the patient will be evaluated for admission by the hospitalist service. He is aware of the plan and agrees. Impression & Plan Syncope, Panhypopituitarism, Hypotension, Acute adrenal insufficiency Discharge Plan Visit Data Chief Complaint: Syncope (Near Syncope) Stated Complaint: PASSED OUT AT WORK ED Provider: Izabela Iverson Discharge Problem: Syncope, Panhypopituitarism, Hypotension, Acute adrenal insufficiency Patient Disposition: Admitted As Inpatient Discharge Instructions Interventions: ED Discharge Assessment Last Done: 08/28/20 17:04 Discharge Problem: Syncope Qualifiers: Syncope type: unspecified Qualified Code(s): R55 - Syncope and collapse Hypotension Qualifiers: Hypotension type: unspecified hypotension type Qualified Code(s): I95.9 - Hypotension, unspecified
[2020-08-28 16:43] LABS: Appearance Urine Clear (Clear); Bilirubin Urine Negative (Negative); Blood Urine Negative (Negative); Color Urine Yellow; Glucose Urine UA Negative (Negative); Ketones Urine Negative (Negative); Leukocyte Esterase Urine Negative (Negative); Nitrite Urine Negative (Negative); Protein Urine Negative (Negative); Specific Gravity Urine 1.007 (1.000-1.030); Urobilinogen Urine Negative (Negative); pH Urine 5.5 (4.5-7.5)
[2020-08-28 17:05] LABS: Amphetamines+Metham, Urine Neg (Neg); Barbiturates, Urine Neg (Neg); Benzodiazepine, Urine Neg (Neg); Cocaine, Urine Neg (Neg); MDMA (Ecstacy), Urine Neg (Neg); Methadone, Urine Neg (Neg); Opiate, Urine Neg (Neg); Phencyclidine, Urine Neg (Neg)
--- NOTE | 2020-08-28 17:31 | XRay Report ---
XR chest 2V PA/lateral HISTORY: lethargy recent pneumonia COMPARISON: Chest 06/06/2020. FINDINGS: No pneumothorax. No pleural effusions. The heart is normal in size. No focal lung consolida tions to suggest pneumonia. No evidence for pulmonary edema. Mild anterior wedging within the thoraci c spine vertebral bodies. This is likely chronic. IMPRESSION: No acute process. ACT 112: Negative or not required by law. Electronically signed by: Minh Hinds M.D. 08/28/2020 5:29 PM
[2020-08-28] MEDS ORDERED: ONDANSETRON INJ 2 MG/ML 2 ML VIAL IV PRN (18:13)
[2020-08-28] MEDS ORDERED: ACETAMINOPHEN 325 MG TAB PO PRN (18:13)
[2020-08-28] MEDS ORDERED: Nursing to Pharmacy Communication SCH (19:45)
[2020-08-28] MEDS: POTASSIUM CHLORIDE CRTAB 20 MEQ TABCR PO SCH (20:40)
[2020-08-28] MEDS: CALCIUM 600MG + VIT D 400 IU TAB PO SCH (20:40)
[2020-08-28] MEDS: DESMOPRESSIN ACETATE 0.1 MG TAB PO SCH (20:40)
[2020-08-28] MEDS: LEVOTHYROXINE SODIUM 112 MCG TABLET PO SCH (20:40)
[2020-08-29] MEDS: LEVOTHYROXINE SODIUM 112 MCG TABLET PO SCH (06:05)
--- NOTE | 2020-08-29 06:23 | Electrocardiogram Report ---
Test Reason : Blood Pressure : / mmHG Vent. Rate : 056 BPM Atrial Rate : 056 BPM P-R Int : 194 ms QRS Dur : 104 ms QT Int : 448 ms P-R-T Axes : 063 013 034 degrees QTc Int : 432 ms Sinus bradycardia Incomplete right bundle branch block Borderline ECG When compared with ECG of 07-JUN-2020 18:54, Incomplete right bundle branch block is now Present Nonspecific T wave abnormality, improved in Inferior leads Confirmed by Gregory Nielson ([id number]) on 08/29/2020 6:23:27 AM Referred By: REFERRED SELF Confirmed By:Gregory Nielson
[2020-08-29 06:49] LABS: Hemoglobin 11.7 g/dL (14.0-18.0); Mean Corpuscular Hemoglobin 27.4 pg (25-34); Mean Corpuscular Hgb Conc 34.4 g/dL (32-36); Mean Corpuscular Volume 79.6 fL (80-100); Mean Platelet Volume 11.1 fL (7.4-10.4); Platelet Count 132 K/uL (130-400); RDW Coefficient of Variation 15.2 % (11.5-14.5); Red Blood Count 4.27 M/uL (4.7-6.1); White Blood Count 4.71 K/uL (4.8-10.8)
[2020-08-29 07:19] LABS: BUN Creatinine Ratio 12.4 (10-20); Calcium 8.3 mg/dl (8.5-10.1); Creatinine Clr Calc Pharmacy 180.1 ml/min; Est GFR (African American) 141.7; Est GFR (Non-African American) 122.3; Potassium 4.1 mmol/L (3.5-5.1)
--- NOTE | 2020-08-29 07:40 | Hospitalist Progress Note ---
Date of Service August 29, 2020 Assessment & Plan (1) Syncope: Likely 2' to hypotension as well as bradycardia. Diff dx would include orthostatic hypotension vs intracranial process. Not PE, dimer was normal. Check HCT Checking orthostatics today and tomorrow PT eval as well to ensure he is stable while ambulating Present on Admission?: Yes (2) Hypotension: recently lost weight approx 35 pounds received NS 2L and subsequently 125ml/hr, which has been dc'd appears euvolemic Present on Admission?: Yes (3) Sinus bradycardia: likely 2' to hypothyroidism monitor on telemetry call cardio in am Present on Admission?: Yes (4) Hypothyroidism: TSH appropriately < 0.05 after pituitary resection Free T4 0.63 which is too low He is currently taking levothyroxine 112mcg PO daily he takes synthroid on empty stomach daily will increase his dose to 124mcg PO daily call endo consult in morning will also have him see his lathe operator Dr. Landis in [place] later this week Present on Admission?: Yes (5) Chronic adrenal insufficiency: acute on chronic hypotensive received hydrocortisone 100mg IV once cont home dose hydrocortisone 20mg PO daily and he knows to take double dose when he isn't feeling well Present on Admission?: Yes (6) Microcytic anemia: check ferritin, iron study (7) Panhypopituitarism: s/p pituitary mass resection taking desmopressin 0.1mg PO HS, hydrocortisone 20mg PO qAM, synthroid and testo sterone. He denies any omission of medications. He did have a preceding illness a few weeks ago which was treated appropriately as pneumonia. He is Covid negative in the ER. Otherwise he has no significant objective clinical abnormalities other than mild hypokalemia and mild on the repletion of his thyroid. Present on Admission?: Yes (8) Diabetes insipidus: cont vasopressin serum sodium is normal patient appears euvolemic Present on Admission?: Yes (9) Hypogonadism: 2' to hypopituitarism cont testosterone cypionate 100mg IM weekly Present on Admission?: Yes (10) DVT prophylaxis: will admit as inpatient as he will be here two midnights. requires continued telemetry monitoring. will need cardio and endo consults tomorrow. possibly dc home tomorrow evening if all goes well. Admission and Anticipated Discharge Date Admission Date: August 28, 2020 Subjective Patient has recently travelled to [place] for hunting trip. States he lost 35 pounds over the past two months. Is compliant with hydrocortisone and synthroid , hasn't missed any doses. He did take a double dose due to some diarrhea and feeling poorly around 10-14. On 08-25 came home from [place] after two days in the car. Pt sees Dr. Landis of [place] [facility]. On 08-28 passed out at work, fell onto cardboard boxes, did not hit head. Awoke to boss trying to awaken him. Did not have palpitations, did endorse presyncopal dizziness, feeling his vision going out, which improved temporarily when sitting down. On arrival to ER, BP was 73/40. His symptoms and BP improved with fluids and stress dose hydrocortisone. Review of Systems Constitutional: + weight loss; no fever, no chills and no anorexia Eyes: no diplopia and no problem reported Ear, Nose, Mouth, Throat: no nasal discharge and no sore throat Respiratory: no cough, no chest congestion and no dyspnea Cardiovascular: + lightheadedness and + syncope; no chest pain, no chest pain with activity, no dyspnea on exertion and no palpitations Gastrointestinal: + constipation; no abdominal pain, no nausea, no vomiting and no diarrhea/loose stools Genitourinary: no dysuria Musculoskeletal: no back pain, no neck pain and no muscle weakness Integumentary: no rash, no dry skin and no change in hair Neurologic: + unsteadiness; no localized weakness, no generalized weakness, no numbness, no paresthesia, no tremor(s) and no headache(s) Psychiatric: no depression and no anxiety Endocrine: no polydipsia and no polyuria Hematologic / Lymphatic: no lymphadenopathy Physical Exam Constitutional: well developed and well nourished; no acute distress Eyes: EOM intact bilaterally; normal pupil size ENMT: Mouth: + dry oral mucous membranes Respiratory: normal respiratory effort, lungs clear to auscultation Cardiovascular: RRR, no murmur, no edema Gastrointestinal (Abdomen): Inspection/Auscultation: abdomen normal to inspection and normal bowel sounds Percussion/Palpation: abdomen nontender Musculoskeletal: Head/Neck/Chest: normocephalic and head atraumatic Spine: normal cervical ROM, no cervical muscular tenderness, no thoracic spinal tenderness and no lumbar spinal tenderness Skin: no rashes, warm and dry Neurologic: CN's II-XI intact bilaterally and moves all extremities; not confused Speech / Cognition: normal speech and no expressive aphasia Motor/Sensory: no tremor Psychiatric: Orientation: alert and oriented x 3 Affect: no depressed affect and no anxious affect Genitourinary: no cabrales catheter present Results & Data Results & Data ([facility]) Vital Signs (Past 12 Hours) Vital Signs Temp Pulse Pulse Resp BP Pulse Ox 08/29/20 07:09 49 L 08/29/20 06:54 36.7 C 58 L 18 90/56 L 96 08/29/20 03:44 36.8 C 52 L 18 110/66 99 08/29/20 01:27 65 08/28/20 23:15 36.8 C 64 18 107/67 100 Laboratory Results WBC 4.7, Hg 11.7, plt 132 Dimer normal Cl 113 (high) otherwise BMP normal TSH < 0.005 (low) Free T4 0.63 (low) UA normal UDS positive MJ COVID 19 negative Diagnostic Findings CXR no acute process ECG Additional Comments: EKG new incomplete RBBB, sinus bradycardia PG Care Time/CCT Total # of Minutes Spent Total Time Spent with Patient: Total time spent is greater than 50% in coordination of care (as documented) at patient's floor/unit and/or counseling patient: Coding Level of Care Code 27697 Subseq Hosp Care Lvl 3 Diagnoses Syncope R55 Syncope type: unspecified Hypotension I95.89; E86.1 Hypotension type: hypotension due to hypovolemia Sinus bradycardia R00.1 Hypothyroidism E89.0 Hypothyroidism type: postoperative Chronic adrenal insufficiency E27.40 Microcytic anemia D50.9 Panhypopituitarism E23.0 Diabetes insipidus E23.2 Hypogonadism DVT prophylaxis Z29.9 (1) Hypothyroidism Hypothyroidism type: postoperative Qualified Code(s): E89.0 - Postprocedural hypothyroidism (2) Syncope Syncope type: unspecified Qualified Code(s): R55 - Syncope and collapse (3) Hypotension Hypotension type: hypotension due to hypovolemia Qualified Code(s): I95.89 - Other hypotension; E86.1 - Hypovolemia
[2020-08-29] MEDS: CALCIUM 600MG + VIT D 400 IU TAB PO SCH ×2 (08:36→20:40)
[2020-08-29] MEDS: HYDROCORTISONE 10 MG TAB PO SCH (08:36)
[2020-08-29] MEDS: POTASSIUM CHLORIDE CRTAB 20 MEQ TABCR PO SCH ×2 (08:37→20:39)
[2020-08-29 14:01] LABS: Ferritin 122.1 ng/ml (8-388)
[2020-08-29] MEDS: SODIUM CHLORIDE 0.9% 1000ML 1,000 ML IV SCH (18:15)
--- NOTE | 2020-08-29 18:39 | CT Scan Report ---
CT head/brain wo con CLINICAL HISTORY: 44 years-old Male with syncope. Syncope with bradycardia TECHNIQUE: Multiple axial CT images of the head were obtained without contrast. A dose lowering tech nique was utilized adhering to the principles of ALARA. CT DOSE: 537.48 mGy.cm COMPARISON: None. FINDINGS: There is mildly motion degraded. There is no definite acute intracranial hemorrhage. There is no midl ine shift, intracranial mass, hydrocephalus, territorial ischemia or abnormal extra-axial collection. There are curvilinear hyperdensities noted within the bilateral frontal lobe subcortical distributio ns. Ill-defined 6 mm hyperdense focus involves the right lentiform nucleus on image 10 series 2. The calvarium is intact. The paranasal sinuses, mastoid air cells, and middle ear cavities are clear . IMPRESSION: 1. Curvilinear hyperdensities within the bilateral frontal lobe subcortical distributions and right l entiform nucleus are suggestive of nonspecific parenchymal calcifications with acute intracranial hem orrhage considered much less likely. As a precautionary measure, a short-term follow-up head CT in 12 -24 hours is recommended to further evaluate. 2. No midline shift, hydrocephalus or acute territorial infarct. Findings were discussed with Dr. Valdovinos on 08/29/2020 at 6:30 PM. ACT 112: Negative or not required by law. The above report was generated using voice recognition software. It may contain grammatical, syntax o r spelling errors. Electronically signed by: Veto Amin M.D. 08/29/2020 6:37 PM
[2020-08-29] MEDS: DESMOPRESSIN ACETATE 0.1 MG TAB PO SCH (20:39)
[2020-08-30] MEDS: SODIUM CHLORIDE 0.9% 1000ML 1,000 ML IV SCH ×3 (02:00→13:17)
[2020-08-30] MEDS: LEVOTHYROXINE SODIUM 125 MCG TABLET PO SCH (05:38)
--- NOTE | 2020-08-30 07:46 | Hospitalist Progress Note ---
Date of Service August 30, 2020 Assessment & Plan (1) Abnormal CT scan, head: discussed with radiology -- likely chronic calcifications vs intracranial hemorrhage discussed with neurology Dr. Winkler -- even if intracranial hemorrhage, very minimal, and only treatment would be blood pressure control which we are already doing MRI without evidence of hemorrhage apprec neurology consultation Present on Admission?: Yes (2) Sinus bradycardia: likely 2' to hypothyroidism monitor on telemetry cardiology to see today (3) Hypothyroidism: Free T4 0.63 - too low After starting higher dose synthroid 125mcg, free T3 was 2.39 which is normal Cont synthroid 125mcg PO daily will also have him see his chef instructor Dr. Landis in [place] later this week (4) High risk sexual behavior: Patient has new sexual partner Requests STI testing Check urine GC/CT, RPR, HIV, Hep C, HSV IgM and IgG (5) Syncope: resolved Likely 2' to hypovolemic hypotension, bradycardia, and orthostatic hypotension Unlikely PE, dimer was normal. (6) Orthostatic hypotension: patient has orthostatic hypotension, likely related to dehydration after receiving IV fluids overnight, orthostatic bp's this am were much improved PT recommended taking extra time between position changes to allow BP to stabilize -- they say he is safe to return home Present on Admission?: Yes (7) Hypotension: resolved with fluids and hydrocortisone recently lost weight approx 35 pounds received NS 2L and subsequently 125ml/hr, which has been dc'd appears euvolemic (8) Acute adrenal insufficiency: resolved acute on chronic adrenal insufficiency leading to hypotension received hydrocortisone 100mg IV once on admit cont home dose hydrocortisone 20mg PO daily pt knows to take double dose when he isn't feeling well (9) Chronic adrenal insufficiency: acute on chronic cont home dose hydrocortisone 20mg PO daily and he knows to take double dose when he isn't feeling well (10) Microcytic anemia: consistent with anemia of chronic inflammation ferritin normal iron normal TIBC low (11) Panhypopituitarism: s/p pituitary mass resection (12) Diabetes insipidus: cont vasopressin serum sodium is normal patient appears euvolemic (13) Hypogonadism: 2' to hypopituitarism cont testosterone cypionate 100mg IM weekly (14) DVT prophylaxis: will admit as inpatient as he will be here two midnights. requires continued telemetry monitoring. will need cardio consult tomorrow. possibly dc home tomorrow evening if all goes well. Admission and Anticipated Discharge Date Admission Date: August 29, 2020 Subjective Patient reports being worried about his bradycardia. Reports he was bradycardic during previous hospitalizations, but was not sure why. Still feeling dizzy when he stands up too quickly from sitting position. Has not passed out again since admission. Discussed importance of keeping hydrated. Pt states he does drink water throughout the day, sometimes he will even drink pedialyte or gatorade. Slept well, eating well. Denies headache, nausea, vomiting, diarrhea. Near the end of my visit, pt stated that he has a new sexual partner and requests STI testing be performed. Review of Systems Constitutional: + weight loss; no fever, no chills and no anorexia Ear, Nose, Mouth, Throat: no nasal congestion, no sore throat and no dysphagia Respiratory: no cough and no dyspnea Cardiovascular: + lightheadedness; no chest pain, no chest pain with activity, no dyspnea on exertion, no palpitations and no syncope Gastrointestinal: + constipation; no abdominal pain, no nausea, no vomiting and no diarrhea/loose stools Musculoskeletal: no back pain, no joint pain, no myalgia and no muscle weakness Integumentary: no rash, no lesions, no skin ulcer, no erythema, no dry skin and no pruritus Neurologic: + unsteadiness; no localized weakness, no generalized weakness, no numbness, no paresthesia, no tremor(s) and no headache(s) Psychiatric: no depression, no suicidal ideation, no homicidal ideation and no anxiety Endocrine: no cold intolerance and no heat intolerance Hematologic / Lymphatic: no easy bleeding and no easy bruising Physical Exam Constitutional: well developed and well nourished; no acute distress Eyes: EOM intact bilaterally; normal pupil size ENMT: Mouth: oral mucous membranes not dry Respiratory: normal respiratory effort, lungs clear to auscultation Cardiovascular: RRR, no murmur, no edema Gastrointestinal (Abdomen): Inspection/Auscultation: abdomen normal to inspection and normal bowel sounds Percussion/Palpation: abdomen nontender Musculoskeletal: Head/Neck/Chest: normocephalic and head atraumatic Spine: normal cervical ROM, no cervical muscular tenderness, no thoracic spinal tende rness and no lumbar spinal tenderness Skin: no rashes, warm and dry Neurologic: CN's II-XI intact bilaterally and moves all extremities; not confused Speech / Cognition: normal speech and no expressive aphasia Motor/Sensory: no tremor Psychiatric: Orientation: alert and oriented x 3 Affect: no depressed affect and no anxious affect Results & Data Results & Data ([facility]) Vital Signs (Past 12 Hours) Vital Signs Temp Pulse Pulse Resp BP Pulse Ox 08/30/20 03:28 36.4 C L 57 L 14 106/67 97 08/29/20 23:22 36.6 C 40 L 15 118/75 100 08/29/20 23:05 44 L 08/29/20 19:39 36.4 C L 43 L 14 112/69 100 Orthostatics 3pm (08-29) lying HR 60, 138/75 sitting HR 52, 134/73 standing HR 74, 108/75 Orthostatics 11pm (08-30) Lying HR 40, 118/75 Sitting HR 56, 133/83 Standing HR 68, 124/80 Results / Data Diagnostic Findings Head CT: IMPRESSION: 1. Curvilinear hyperdensities within the bilateral frontal lobe subcortical distributions and right lentiform nucleus are suggestive of nonspecific parenchymal calcifications with acute intracranial hemorrhage considered much less likely. As a precautionary measure, a short-term follow-up head CT in 12-24 hours is recommended to further evaluate. 2. No midline shift, hydrocephalus or acute territorial infarct. MRI brain: IMPRESSION: 1. No acute intracranial abnormality. 2. The punctate hyperdense foci within the frontal lobes on the prior CT examination are not clearly identified on this study and favor mineralization/calcification. No areas of susceptibility artifact to suggest intracranial hemorrhage. However, a repeat head CT is recommended today to ensure stability. Medications Administered Acetaminophen (Acetaminophen 325 Mg Tab) 650 mg PO Q4H PRN PRN Reason: Pain or Fever Stop: 09/27/20 18:12 Last Admin: 08/29/20 19:38 Dose: 650 mg Documented by: [id number] Desmopressin Acetate (Desmopressin Acetate 0.1 Mg Tab) 0.1 mg PO [facility] Stop: 09/27/20 20:59 Last Admin: 08/29/20 20:39 Dose: 0.1 mg Documented by: [id number] Admin: 08/28/20 20:40 Dose: 0.1 mg Documented by: [id number] Hydrocortisone (Hydrocortisone 10 Mg Tab) 20 mg PO QAM JUDITH Stop: 09/28/20 08:59 Last Admin: 08/29/20 08:36 Dose: 20 mg Documented by: [id number] Sodium Chloride (Nss 1000ml) 1,000 mls @ 125 mls/hr IV .Q8H [facility] Stop: 09/28/20 17:59 Last Admin: 08/30/20 05:37 Dose: 125 mls/hr Documented by: [id number] Infusion: 08/30/20 02:15 Dose: 125 mls/hr Documented by: [id number] Admin: 08/30/20 02:00 Dose: Not Given Documented by: [id number] Admin: 08/29/20 18:15 Dose: 125 mls/hr Documented by: [id number] Levothyroxine Sodium (Levothyroxine Sodium 125 Mcg Tablet) 125 mcg PO DAILYBB [facility] Stop: 09/29/20 06:29 Last Admin: 08/30/20 05:38 Dose: 125 mcg Documented by: [id number] Multivitamins/Minerals (Calcium 600mg + Vit D 400 Iu Tab) 1 tab PO BID [facility] Stop: 09/27/20 20:59 Last Admin: 08/29/20 20:40 Dose: 1 tab Documented by: [id number] Admin: 08/29/20 08:36 Dose: 1 tab Documented by: [id number] Admin: 08/28/20 20:40 Dose: 1 tab Documented by: [id number] PG Care Time/CCT Total # of Minutes Spent Total Time Spent with Patient: Total time spent is greater than 50% in coordination of care (as documented) at patient's floor/unit and/or counseling patient: Coding Level of Care Code 10005 Subseq Hosp Care Lvl [address] scan, head R93.0 Sinus bradycardia R00.1 Hypothyroidism E89.0 Hypothyroidism type: postoperative High risk sexual behavior Z72.51 High risk sexual behavior type: heterosexual Syncope R55 Syncope type: unspecified Orthostatic hypotension I95.1 Hypotension I95.89; E86.1 Hypotension type: hypotension due to hypovolemia Acute adrenal insufficiency E27.40 Chronic adrenal insufficiency E27.40 Microcytic anemia D50.9 Panhypopituitarism E23.0 Diabetes insipidus E23.2 Hypogonadism DVT prophylaxis Z29.9 (1) High risk sexual behavior High risk sexual behavior type: heterosexual Qualified Code(s): Z72.51 - High risk heterosexual behavior (2) Hypothyroidism Hypothyroidism type: postoperative Qualified Code(s): E89.0 - Postprocedural hypothyroidism (3) Syncope Syncope type: unspecified Qualified Code(s): R55 - Syncope and collapse (4) Hypotension Hypotension type: hypotension due to hypovolemia Qualified Code(s): I95.89 - Other hypotension; E86.1 - Hypovolemia
--- NOTE | 2020-08-30 08:11 | Magnetic Resonance Report ---
Brain MRI WITHOUT CONTRAST HISTORY: Syncope. abnormal head ct TECHNIQUE: Multiplanar multisequence MRI of the brain was performed without the use of contrast. COMPARISON STUDY: Head CT 08/29/2020. FINDINGS: No areas of restricted diffusion to suggest acute infarction. The midline structures are in tact. There is no mass, hematoma, midline shift. The brain parenchyma demonstrates normal signal inte nsity. The punctate hyperdense foci within the frontal lobes on the prior CT examination are not wilver rly identified on this study and favor mineralization/calcification. No areas of susceptibility artif act to suggest intracranial hemorrhage. However, a repeat head CT is recommended today to ensure stab ility. The major vascular flow-voids at the skull base are well-maintained. The ventricles and sulci are within normal limits. Paranasal sinuses and mastoid air cells are clear. IMPRESSION: 1. No acute intracranial abnormality. 2. The punctate hyperdense foci within the frontal lobes on the prior CT examination are not clearly identified on this study and favor mineralization/calcification. No areas of susceptibility artifact to suggest intracranial hemorrhage. However, a repeat head CT is recommended today to ensure stabilit y. ACT 112: Negative or not required by law. Electronically signed by: Minh Hinds M.D. 08/30/2020 8:10 AM
[2020-08-30 08:22] LABS: Hematocrit (blood only) 32.9 % (42-52); Hemoglobin 11.3 g/dL (14.0-18.0); Mean Corpuscular Hemoglobin 27.6 pg (25-34); Mean Corpuscular Hgb Conc 34.3 g/dL (32-36); Mean Corpuscular Volume 80.2 fL (80-100); Mean Platelet Volume 11.6 fL (7.4-10.4); Platelet Count 131 K/uL (130-400); RDW Coefficient of Variation 15.3 % (11.5-14.5); RDW Standard Deviation 44.5 fL (36.4-46.3)
[2020-08-30] MEDS: CALCIUM 600MG + VIT D 400 IU TAB PO SCH ×2 (08:28→20:04)
[2020-08-30] MEDS: HYDROCORTISONE 10 MG TAB PO SCH (08:28)
[2020-08-30 08:58] LABS: BUN Creatinine Ratio 14.2 (10-20); Calcium 8.3 mg/dl (8.5-10.1); Creatinine Clr Calc Pharmacy 133.9 ml/min; Est GFR (Non-African American) 107.9; Potassium 3.8 mmol/L (3.5-5.1)
--- NOTE | 2020-08-30 13:50 | Neurology Consultation ---
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 # Abnormal CTH: no abnormalities on MRI brain c/w hemorrhage. Hyperdensities on CTH most likely 2/2 calcifications vs artifact. Also denies any head injuries recently that would be c/f traumatic SAH. He reports that he is feeling well at this time since he received IVFs. - no further neurological workup needed at this time - agree with cardiology consultation regarding bradycardia and orthostatic hypotension - no need for neurological follow up Thank you for this interesting consult. Plan of care discussed with primary team. Please call or text with questions. (2) History of pituitary tumor: (3) Panhypopituitarism: History of Present Illness Attending Physician: Simran Skaggs MD History of Present Illness Christian Jorge is a 45 yo man w/ PMH of panhypopituitarism and chronic adrenal insufficiency 2/2 pituitary tumor resection who p/t [facility] on 08/28/20 with lethargy and generalized weakness. He initially reported having pneumonia several weeks prior to presentation that he completed antibiotics for. He traveled to [place] for a hunting trip and recently returned from there; want to work and noticed above symptoms of lethargy and generalized weakness so presented to ED for further evaluation. In the ED, he was noted to be hypotensive with BP 73/40, heart rate 56, respiratory rate 12 satting 94 to 100% on room air. Initial labs showed WBC 5.46, hemoglobin 13.3 with MCV 79.9, platelets 168, sodium 139, potassium 3.1, creatinine 1.15, glucose 79, calcium/magnesium within normal, LFTs within normal, CK 86, troponin negative, TSH suppressed at less than 0.005 with low free T4 0.63, random cortisol less than 0.5, Covid negative. For the lab work showed UA with no infection, UDS positive for marijuana, iron low normal at 56, TIBC low at 198, ferritin normal at 122.1. He had a CT head performed on 1025 was independently reviewed and showed trace hyperdensities in the right frontal lobe and left parietal occipital lobe, enlargement of extra-axial spaces anteriorly, no hypodensity or clear hemorrhage noted. MRI brain with GRE sequence obtained and shows no acute or chronic infarct, surgically absent pituitary gland, no hemosiderin deposition or T1 changes to suggest hemorrhage, small cerebellar arachnoid cyst. On examination today, he reports that he presented to the [facility] after having dizziness and lightheadedness like he was going to pass out. [place] like there is something grabbing his neck and choking him. Denies any actual fainting episode or fall where he hit his head. Denies any other neurological symptoms such as numbness, tingling, unilateral weakness or headaches. Allergies Allergy/AdvReac Type Severity Reaction Status Date / Time No Known Allergies Allergy Verified 08/28/20 14:50 Home Medications Home Medications Medication Instructions Recorded Confirmed Type desmopressin 0.1 mg PO HS 06/06/20 08/28/20 History hydrocortisone 20 mg PO QAM 06/06/20 08/28/20 History levothyroxine [Euthyrox] 112 mcg PO QAM 06/06/20 08/28/20 History testosterone cypionate 100 mg IM WK 06/06/20 08/28/20 History [id number] 1 tab PO BID #14 tab 06/08/20 08/28/20 Rx [Caltrate 600-D Plus Minerals] Patient History Medical History Chronic adrenal insufficiency History of pituitary tumor Panhypopituitarism Social History Smoking Status: Former smoker Hx Alcohol Use: Yes Alcohol type: beer Hx Substance Use: Yes Last Used Substance Other:: "years ago" Preferred Language: Mongolian Communication Ability: Effective 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 Exam (Neuro) Physical Exam: General Exam: GEN: NAD, sitting in bed. HEENT: No conjunctival injection, no rhinorrhea. CV: RRR, no peripheral edema PULM: Nonlabored respirations on room air. Neuro Exam: MS: Awake and Alert. Oriented to person, place, and date. Speech fluent and appropriate without dysarthria or paraphasic errors. Language intact including naming, comprehension, repetition. Cognition and memory grossly intact. Attention intact. No neglect. CN: Visual [place] full. No extinction to double simultaneous stimuli. No optic disc edema on fundoscopic exam. PERRLA OU. EOMI without nystagmus. Facial sensation intact to LT. Facial muscles full and symmetric. Hearing intact to conversation. Uvula midline with symmetric palatal elevation. Shoulder shrug normal. Tongue midline. MOTOR: Normal bulk and tone. No pronator drift. BUE strength 5/5 at deltoids, biceps, triceps, wrist flexors and extensors, and hand grasp bilaterally. BLE strength 5/5 at iliopsoas, hamstrings, quadriceps, tibialis anterior, and gastrocnemius bilaterally. REFLEXES: 2+ at biceps, triceps, brachioradialis, 2+ patella and 1+ Achilles bilaterally. Flexor plantar responses bilaterally. SENSORY: Intact to LT without extinction to double simultaneous stimuli. Vibration intact throughout. COORDINATION: No dysmetria or ataxia on [id number] bilaterally. Normal Dora bilaterally. GAIT: deferred given physical status/fall risk with orthostatic hypotension Results & Data ([facility]) Vital Signs (Past 12 Hours) Vital Signs Temp Pulse Pulse Resp BP Pulse Ox 08/30/20 11:19 36.8 C 45 L 18 122/73 98 08/30/20 08:00 41 L 08/30/20 07:49 36.6 C 48 L 16 105/64 100 08/30/20 03:28 36.4 C L 57 L 14 106/67 97 PG Care Time/CCT Total # of Minutes Spent Total Time Spent with Patient: Total time spent is greater than 50% in coordination of care (as documented) at patient's floor/unit and/or counseling patient: Coding Level of Care Code 45698 Inpt Consult Level [address] scan, head R93.0 History of pituitary tumor Z87.898 Panhypopituitarism E23.0
--- NOTE | 2020-08-30 18:05 | Cardiology Consultation ---
Date of Consultation August 30, 2020 Assessment & Plan (1) Sinus bradycardia: (2) Syncope: (3) Orthostatic hypotension: (4) Panhypopituitarism: ASSESSMENT/PLAN: 1. Sinus bradycardia: Asymptomatic at rest. Spoke with nursing staff in asked her to have him walk around the nursing unit after he completes his IV fluids and monitor his heart rate. Results of this demonstrated a heart rate 40-45 while in bed, after 1 lap heart rate was in the 70s, and peaked in the 80s to 94 range with subsequent laps. He appears to have appropriate chronotropic response. 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 Continue to supplement thyroid replacement therapy and hopefully with normalized levels in the future, his heart rate will improve as well. There is no indication for pacemaker at this time. If there is future concern about particular events related to heart rate, outpatient monitoring could be arranged. 2. Syncope: Syncope concerning for orthostatic hypotension as he was hypotensive on presentation in the ER and has had abnormal orthostatic vitals intermittently here per report. We discussed improving hydration while outside of the hospital setting. Can liberalize salt in his diet. Recommended compression stockings. 3. Orthostatic hypotension: Plan as above. He was receiving IV fluids during our meeting earlier today. He also was hypotensive on presentation. Blood pressure has otherwise improved. 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 5. Incomplete right bundle-branch block: No specific evaluation necessary. Benign process. 6. Disposition: Please call with any other questions or concerns. Patient care was discussed with primary hospitalist, Dr. Skaggs. Thank you for allowing me to participate in the care of your patient. Please call for any other questions or concerns. Sincerely, Kevin Nielson M.D. History of Present Illness Reason for Consultation: Bradycardia Requesting Physician: Simran Skaggs MD Attending Physician: Simran Skaggs MD History of Present Illness Mr. Jorge is a very pleasant 45-year-old gentleman with a history significant for panhypopituitarism following pituitary resection. He was admitted on 08/28/2020 after experiencing a syncopal episode. While at work on Saturday, 2 days ago, he felt lightheaded and when outside. He had been standing and he works in a kitchen, next to a very hot stove/of in. He admits that he did not have anything to eat that day and it was approximately 1 or 1:30 p.m. in the afternoon. He also admits that the only thing he had to drink all day with a cup of coffee. While sitting outside the felt a bit better and went back into the kitchen only to become symptomatic again in 30 seconds or so. He went back outside and sat down and thinks that he lost consciousness. When he woke up he told his boss that he would have to leave work. While walking towards the door, he lost consciousness and the next thing he remembers his boss was tapping him on the cheek to wake up. He denies any chest discomfort, palpitations, shortness of breath prior to or following the episode. He denies urinary or fecal incontinence. He felt otherwise back to baseline after he regained consciousness. He admits that he had syncope frequently in the past prior to diagnosis of pituitary tumor and that things seem to resolve after resection. While hospitalized, his heart rate has been mostly bradycardic. At times overnight, his heart rate on telemetry will dip down transiently to the upper 30s and he did have a couple junctional beats overnight between 1 and 2:00 a.m., but otherwise no arrhythmia. He does not recall his usual heart rate as he has not seen a doctor in approximately 1 year. He admits to mild lightheadedness when getting up from a seated position for the past few months. He has had orthostatic vitals checked intermittently throughout this hospital stay. He has had some abnormal orthostatic values with a drop in blood pressure but his orthostatic blood pressures today were normal when reviewed with nursing staff. His free T4 was low and it appears as though his replacement therapy has been adjusted. He denies melena, hematochezia, hematuria, fever, vomiting, diarrhea, palpitations, chest pain, or shortness of breath. Review of systems: As above and also admits to mild nausea. Review of systems otherwise negative/unremarkable. Family history: Mother has atrial fibrillation. Maternal grandmother had MD. Social history: He quit smoking in approximately 2007 after smoking up to 1.5 packs per day. Rare alcohol. He is not . He lives with friends. He has no children. 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 He was unaccompanied. Allergies Allergy/AdvReac Type Severity Reaction Status Date / Time No Known Allergies Allergy Verified 08/28/20 14:50 Home Medications Home Medications Medication Instructions Recorded Confirmed Type desmopressin 0.1 mg PO HS 06/06/20 08/28/20 History hydrocortisone 20 mg PO QAM 06/06/20 08/28/20 History levothyroxine [Euthyrox] 112 mcg PO QAM 06/06/20 08/28/20 History testosterone cypionate 100 mg IM WK 06/06/20 08/28/20 History [id number] 1 tab PO BID #14 tab 06/08/20 08/28/20 Rx [Caltrate 600-D Plus Minerals] Patient History Medical History Chronic adrenal insufficiency History of pituitary tumor Panhypopituitarism Social History Smoking Status: Former smoker Hx Alcohol Use: Yes Alcohol type: beer Hx Substance Use: Yes Last Used Substance Other:: "years ago" Preferred Language: Slovenian Communication Ability: Effective International Relations Professor Required: No Beliefs That Will Affect Care: Restorationism Current Living Situation: Family Other Information That Helps Us Care for You: No Feels Safe at Home: Yes Safety Concerns: Feels Safe At This Time Assistive Devices: None Physical Exam Physical Exam: Gen.: No acute distress. Alert and oriented. HEENT: Anicteric sclera. Neck: No JVD. No bruits. Normal carotid upstrokes bilaterally. Cardiac: PMI was nondisplaced. No ventricular heave. Regular but bradycardic in the 40s. Normal S1-S2. No murmurs, rubs, or gallops. Pulmonary: Clear to auscultation bilaterally without wheezes, rales, or rhonchi. Abdomen: Soft, nontender, nondistended, with normoactive bowel sounds. No bruits noted. Extremities: 2+ radial pulses bilaterally. 2+ posterior tibialis pulses bilaterally. No edema or cyanosis. Psychiatric: Affect appears appropriate. Results & Data ([facility]) Vital Signs (Past 12 Hours) Vital Signs Temp Pulse Pulse Resp BP Pulse Ox 08/30/20 15:53 36.6 C 61 18 110/67 100 08/30/20 14:47 40 L 08/30/20 11:19 36.8 C 45 L 18 122/73 98 08/30/20 08:00 41 L 08/30/20 07:49 36.6 C 48 L 16 105/64 100 Intake & Output 08/28/20 08/29/20 08/30/20 08/31/20 06:59 06:59 06:59 06:59 Intake Total 3360 / 3360 2200 / 2200 1920.000 / 1920.000 Balance 3360 / 3360 2200 / 2200 1920.000 / 1920.000 Weight 93.1 kg 93.4 kg Laboratory Results Laboratory Results - last 24 hr 08/30/20 08/30/20 08/30/20 07:51 07:51 07:51 WBC 4.90 RBC 4.10 L Hgb 11.3 L Hct 32.9 L MCV 80.2 MCH 27.6 MCHC 34.3 RDW Std Deviation 44.5 RDW Coeff of Gideon 15.3 H Plt Count 131 MPV 11.6 H Sodium 142 Potassium 3.8 Chloride 112 H Carbon Dioxide 25 Anion Gap 5.0 BUN 11 D Creatinine 0.80 Est Cr Clr Drug Dosing 133.9 Est GFR ( Amer) 125.0 Est GFR (Non-Af Amer) 107.9 BUN/Creatinine Ratio 14.2 Glucose 83 Calcium 8.3 L Free T3 2.39 RPR C.trachomatis RNA Hepatitis C Antibody HSV I IgG Ab HSV I IgM TORCH HSV II IgG HSV II IgM TORCH HIV 1&2 Ab/P24 Ag 4thGn N.gonorrhoeae RNA Reference Lab Comment 08/30/20 08/30/20 08/30/20 12:34 12:34 12:34 WBC RBC Hgb Hct MCV MCH MCHC RDW Std Deviation RDW Coeff of Gideon Plt Count MPV Sodium Potassium Chloride Carbon Dioxide Anion Gap BUN Creatinine Est Cr Clr Drug Dosing Est GFR ( Amer) Est GFR (Non-Af Amer) BUN/Creatinine Ratio Glucose Calcium Free T3 RPR Pending C.trachomatis RNA Pending Hepatitis C Antibody HSV I IgG Ab Pending HSV I IgM TORCH Pending HSV II IgG Pending HSV II IgM TORCH Pending HIV 1&2 Ab/P24 Ag 4thGn Neg N.gonorrhoeae RNA Pending Reference Lab Comment Pending 08/30/20 12:34 WBC RBC Hgb Hct MCV MCH MCHC RDW Std Deviation RDW Coeff of Gideon Plt Count MPV Sodium Potassium Chloride Carbon Dioxide Anion Gap BUN Creatinine Est Cr Clr Drug Dosing Est GFR ( Amer) Est GFR (Non-Af Amer) BUN/Creatinine Ratio Glucose Calcium Free T3 RPR C.trachomatis RNA Hepatitis C Antibody Neg HSV I IgG Ab HSV I IgM TORCH HSV II IgG HSV II IgM TORCH HIV 1&2 Ab/P24 Ag 4thGn N.gonorrhoeae RNA Reference Lab Comment Diagnostic Findings ECG personally reviewed: ECG 08/28/2020: Sinus bradycardia 56 beats per minute. Incomplete RBBB. Telemetry personally reviewed: Sinus bradycardia. Occasional junctional beat overnight (1:17 a.m. this morning). No significant pauses. Echo 06/08/2020: Normal LV systolic function and wall motion. Mild AI. Normal RVSP. Chest x-ray 08/28/2020: No acute process. Medications Administered Current Inpatient Medications Acetaminophen (Acetaminophen 325 Mg Tab) 650 mg PO Q4H PRN PRN Reason: Pain or Fever Stop: 09/27/20 18:12 Last Admin: 08/29/20 19:38 Dose: 650 mg Documented by: Desmopressin Acetate (Desmopressin Acetate 0.1 Mg Tab) 0.1 mg PO HS JUDITH Stop: 09/27/20 20:59 Last Admin: 08/29/20 20:39 Dose: 0.1 mg Documented by: Hydrocortisone (Hydrocortisone 10 Mg Tab) 20 mg PO QAM JUDITH Stop: 09/28/20 08:59 Last Admin: 08/30/20 08:28 Dose: 20 mg Documented by: Levothyroxine Sodium (Levothyroxine Sodium 125 Mcg Tablet) 125 mcg PO DAILYBB JUDITH Stop: 09/29/20 06:29 Last Admin: 08/30/20 05:38 Dose: 125 mcg Documented by: Multivitamins/Minerals (Calcium 600mg + Vit D 400 Iu Tab) 1 tab PO BID JUDITH Stop: 09/27/20 20:59 Last Admin: 08/30/20 08:28 Dose: 1 tab Documented by: Ondansetron HCl (Ondansetron Inj 2 Mg/Ml 2 Ml Vial) 4 mg IV Q6H PRN PRN Reason: Nausea Stop: 09/27/20 18:12 PG Care Time/CCT Total # of Minutes Spent Total Time Spent with Patient: Total time spent is greater than 50% in coordination of care (as documented) at patient's floor/unit and/or counseling patient: Coding Level of Care Code 27888 Inpt Consult Level 4 Diagnoses Sinus bradycardia R00.1 Syncope R55 Syncope type: unspecified Orthostatic hypotension I95.1 Panhypopituitarism E23.0 (1) Syncope Syncope type: unspecified Qualified Code(s): R55 - Syncope and collapse
[2020-08-30] MEDS: DESMOPRESSIN ACETATE 0.1 MG TAB PO SCH (20:04)
[2020-08-30 23:01] LABS: Marijuana Quant, GCMS Urine 272 ng/mL (<5)
[2020-08-31] MEDS: LEVOTHYROXINE SODIUM 125 MCG TABLET PO SCH (05:59)
[2020-08-31 07:36] LABS: Hemoglobin 11.9 g/dL (14.0-18.0); Mean Corpuscular Hemoglobin 27.2 pg (25-34); Mean Corpuscular Volume 80.1 fL (80-100); Mean Platelet Volume 11.7 fL (7.4-10.4); Platelet Count 142 K/uL (130-400); RDW Standard Deviation 43.4 fL (36.4-46.3); Red Blood Count 4.37 M/uL (4.7-6.1); White Blood Count 5.56 K/uL (4.8-10.8)
[2020-08-31 08:09] LABS: BUN Creatinine Ratio 14.1 (10-20); Calcium 8.5 mg/dl (8.5-10.1); Creatinine Clr Calc Pharmacy 128.4 ml/min; Est GFR (African American) 123.2; Est GFR (Non-African American) 106.3; Potassium 3.5 mmol/L (3.5-5.1)
[2020-08-31] MEDS: HYDROCORTISONE 10 MG TAB PO SCH (09:06)
[2020-08-31] MEDS: CALCIUM 600MG + VIT D 400 IU TAB PO SCH (09:06)
[2020-08-31 12:46] LABS: Lyme Ab IgG w/WB Rflx Negative (Negative)
[2020-08-31 12:47] LABS: Lyme Ab IgM w/WB Rflx Negative (Negative)
--- NOTE | 2020-08-31 15:19 | Discharge Summary ---
Date of Service August 31, 2020 Admission HPI Per Admitting Provider 44-year-old male whose history of panhypopituitarism for pituitary resection who he is here with lethargy and weakness. Poorly the patient was treated for pneumonia few weeks ago for 2 weeks with antibiotics and then went on a hunting trip to [place] returning home. Patient states that he did fine in [place] and did not skip any medications. Patient presents from work today with weakness. He says he does not want to sleep but has feels more comfortable keeping his eyes closed. Work-up in the emergency department did not reveal anything significantly abnormal he is mildly hypokalemic. He does have mild low re pletion of his T4. (He typically does not make TSH) he notices hydrocortisone dose by heart taking 20 in the morning and 5 at night states he did miss this nor his Synthroid. He takes desmopressin additionally. In the emergency room his remainder his laboratories are unremarkable awaiting a urinalysis and a tox screen as well as an EKG and a chest x-ray. Principal Diagnosis syncope 2' to orthostatic hypotension Discharge Exam Constitutional well developed and well nourished; no acute distress Eyes EOM intact bilaterally; normal pupil size ENMT Mouth: oral mucous membranes not dry Respiratory normal respiratory effort, lungs clear to auscultation Cardiovascular RRR, no murmur, no edema Gastrointestinal (Abdomen) Inspection/Auscultation: abdomen normal to inspection and normal bowel sounds Percussion/Palpation: abdomen nontender Musculoskeletal Head/Neck/Chest: normocephalic and head atraumatic Spine: normal cervical ROM, no cervical muscular tenderness, no thoracic spinal tenderness and no lumbar spinal tenderness Skin no rashes, warm and dry Neurologic CN's II-XI intact bilaterally and moves all extremities; not confused Speech / Cognition: normal speech and no expressive aphasia Motor/Sensory: no tremor Psychiatric Orientation: alert and oriented x 3 Affect: no depressed affect and no anxious affect Discharge Data Allergies Allergy/AdvReac Type Severity Reaction Status Date / Time No Known Allergies Allergy Verified 08/28/20 14:50 Consultations 08/28/20 15:13 ED Decision to Admit Stat 08/30/20 07:31 Consult Neurology Routine 08/30/20 13:48 Consult Cardiology Routine Ordered Studies 08/29/20 17:26 CT head/brain wo con Routine 08/29/20 19:28 MR brain wo con Routine Hospital Course (1) Abnormal CT scan, head: discussed with radiology -- likely chronic calcifications vs intracranial hemorrhage discussed with neurology Dr. Winkler -- even if intracranial hemorrhage, very minimal, and only treatment would be blood pressure control which we are already doing MRI without evidence of hemorrhage apprec neurology consultation (2) Sinus bradycardia: likely 2' to hypothyroidism monitor on telemetry It was not felt that the syncopal episode was related to the bradycardia cardiology Dr. Nielson saw patient, did not recommend pacemaker, noted that patient had normal increase in heart rate with activity Dr. Nielson did note that the patient had several junctional beats, but again, was asymptomatic If further issues arise from slow heart rate, patient may need longer term event monitor as outpatient (3) Hypothyroidism: uncontrolled Free T4 0.63 - too low After starting higher dose synthroid 125mcg, free T3 was 2.39 which is normal Cont synthroid 125mcg PO daily will also have him see his product management analyst Dr. Landis in [place] later this week (4) High risk sexual behavior: Patient has new sexual partner Requests STI testing negative for HIV, HCV antibody, RPR needs to follow up with PCP for urine GC/CT, HSV IgG and IgM (5) Syncope: resolved Likely 2' to hypovolemic hypotension, bradycardia, and orthostatic hypotension Unlikely PE, dimer was normal. (6) Orthostatic hypotension: resolving patient has orthostatic hypotension, likely related to dehydration after receiving IV fluids overnight, orthostatic bp's this am were much improved PT recommended taking extra time between position changes to allow BP to stabilize -- they say he is safe to return home (7) Hypotension: resolved with fluids and hydrocortisone recently lost weight approx 35 pounds received NS 2L and subsequently 125ml/hr, which has been dc'd appears euvolemic (8) Acute adrenal insufficiency: resolved acute on chronic adrenal insufficiency leading to hypotension received hydrocortisone 100mg IV once on admit cont home dose hydrocortisone 20mg PO daily pt knows to take double dose when he isn't feeling well (9) Chronic adrenal insufficiency: cont home dose hydrocortisone 20mg PO daily and he knows to take double do se when he isn't feeling well (10) Microcytic anemia: consistent with anemia of chronic inflammation ferritin normal iron normal TIBC low (11) Panhypopituitarism: s/p pituitary mass resection (12) Diabetes insipidus: cont vasopressin serum sodium is normal patient appears euvolemic (13) Hypogonadism: 2' to hypopituitarism cont testosterone cypionate 100mg IM weekly (14) DVT prophylaxis: will admit as inpatient as he will be here two midnights. requires continued telemetry monitoring. will need cardio consult tomorrow. possibly dc home tomorrow evening if all goes well. Total Time Total Time Spent Total Time Spent (In Minutes): 60 minutes Total Time Includes: Examination of the Patient, Discharge Planning, Medication Reconciliation and Communication With Other Providers Discharge Plan Discharge Items Patient Disposition: Home - Self-Care Reason For Visit: LETHARGY Discharge Diagnosis: 1. syncope 2. bradycardia (slow heart rate) likely related to hypothyroidism 3. hypothyroidism 4. orthostatic hypotension (BP drops when you stand up too quickly) Activity: Per Instructions section Activity Comment: Make sure you pause when standing from a seated position Non-emergency contact: Primary Care Provider Call non-emergency contact if: you have any medication questions Follow-up/Referrals: [facility] [Other] - 09/02/20 11:00 am (within one week) Tanya Jose DO [Primary Care Provider] - 09/08/20 3:15 pm (Follow up pending labs) Diet: Regular Fluids: 2000ml (8 cups) Addtl Attending Provider Instructions: 1. Drink at least 2 liters of fluids per day, ideally at least 1 liter of pedialyte or gatorade 2. Increase your levothyroxine dose to 125mcg daily 3. Take your thyroid medication on an empty stomach 4. Follow up with your PCP within one week to follow up pending tests and for repeat orthostatic BP measurements 5. Follow up with your product management analyst within one week 6. Come back to ER if you pass out again or have any other concerns Pending Studies at Discharge: Yes Studies:: urine gonorrhea and chlamydia PCR herpes simplex 1 and 2 IgG and IgM Stand-Alone Forms: [email or web address], Work/School Release (Inpt), Smoking Cessation Medications and DC Order Prescriptions: New levothyroxine [Synthroid] 125 mcg Tablet 125 mcg PO DAILYBB 30 Days Qty: 30 RF: 1 Continued testosterone cypionate 100 mg/mL oil 100 mg IM WK RF: 0 hydrocortisone 20 mg tablet 20 mg PO QAM RF: 0 desmopressin 0.1 mg tablet 0.1 mg PO HS RF: 0 Caltrate 600-D Plus Minerals 600 mg calcium- 800 unit-50 mg Tablet 1 tab PO BID Qty: 14 RF: 0 Discontinued levothyroxine [Euthyrox] 112 mcg tablet 112 mcg PO QAM RF: 0 Discharge Orders: Discharge Order (Routine); Ordered 08/31/20 Ordered By: Simran Skaggs Admission Data Admit Date/Time: 08/29/20 17:23 Attending Provider: Simran Skaggs Admit Provider: Segun Hinds Primary Care Provider: Tanya Jose Other Providers: Segun Hinds ; Masha Winkler ; Gregory Nielson Other Interventions: Discharge Summary Assessment (RN) Last Done: 08/31/20 10:18 Coding Level of Care Code D/C Day Management >[address] scan, head R93.0 Sinus bradycardia R00.1 Hypothyroidism E89.0 Hypothyroidism type: postoperative High risk sexual behavior Z72.51 High risk sexual behavior type: heterosexual Syncope R55 Syncope type: unspecified Orthostatic hypotension I95.1 Hypotension I95.89; E86.1 Hypotension type: hypotension due to hypovolemia Acute adrenal insufficiency E27.40 Chronic adrenal insufficiency E27.40 Microcytic anemia D50.9 Panhypopituitarism E23.0 Diabetes insipidus E23.2 Hypogonadism DVT prophylaxis Z29.9
[2020-09-03 22:38] LABS: Chlamydia Trach RNA NOT DETECTED (NOT DETECTED); GC (Neis gonorrhoeae) RNA NOT DETECTED (NOT DETECTED); Herpes Simplex Ab IgG-1 <0.90 index; Herpes Simplex Ab IgG-2 <0.90 index
== END 2020-08-31 13:32 | disposition home or self-care (01) | DRG 644 ==
LOC: ED 13:05 → 2N 13:05 → SUATTDRO 15:46 → 2N 17:04